=== PATIENT | female | born 1930 | race Caucasian/White ===

== ENCOUNTER → 2017-05-11 | Outpatient (CLI) | payer OTHER ==
[~2017-05-11] MED LIST: AMLO-110 PO; ASPEC81 PO; ATEN-175 PO; ATOR-24 PO; LEVO150T9 PO; LISI40TA PO; MODA100T17 PO; MULT-190 PO; MULT-506 PO; OMEG10007 PO
--- NOTE | 2017-05-11 15:42 | MAMMOGRAPHY REPORT ---
BILATERAL DIGITAL SCREENING MAMMOGRAM WITH CAD: 05/11/2017 CLINICAL HISTORY: Asymptomatic. Personal history of breast cancer. TECHNIQUE: Bilateral CC and MLO views were obtained. Current study was also evaluated with a Compute r Aided Detection (CAD) system. COMPARISON: Comparison is made to exams dated: 04/15/2016 mammogram, 04/12/2015 mammogram, 04/07/2014 [facility] mogram, 04/06/2013 mammogram, 04/05/2012 mammogram, and 03/17/2011 mammogram - [facility]. BREAST COMPOSITION: There are scattered areas of fibroglandular density in both breasts. FINDINGS: There is expected architectural distortion and associated surgical clips in the upper outer quadrant of the right breast, at the site of prior lumpectomy. There are stable benign-appearing gr ouped calcifications and a stable metallic biopsy marker also near the surgical site. There is a sta ble circumscribed 16 mm mass in the upper outer middle one third of the right breast. Stable asymmet ry and associated calcification in the left upper outer quadrant. No new suspicious mass, architectu ral distortion or cluster of microcalcifications is seen. IMPRESSION: ACR BI-RADS CATEGORY 1: NEGATIVE There is no mammographic evidence of malignancy. A 1 year screening mammogram is recommended. The pa tient will receive written notification of the results. Approximately 10% of breast cancers are not detected with mammography. A negative mammographic report should not delay biopsy if a clinically suggestive mass is present. Chiqui Rashid M.D. ay/:05/11/2017 15:14:23 Chief Analytics Officer: Zuleika Arredondo RT(R)(M), [facility] letter sent: Normal 1/2 BI-RADS Code: ACR BI-RADS Category 1: Negative
== END | disposition home or self-care (01) ==
LOC: C.MAMM 14:24
PROVIDERS: ATTEND Family Medicine
DX: Z12.31 Encounter for screening mammogram for malignant neoplasm of breast (principal)

== ENCOUNTER 2017-11-23 11:03 | Emergency (ER) | payer OTHER ==
[~2017-11-23] VITALS: Ht 172.7 cm; Wt 93.0 kg
[2017-11-23 10:57] VITALS: TEMP 36.5; Ht 172.7 cm; Wt 93.0 kg
[2017-11-23] MEDS ORDERED: MULT-190 PO (12:06)
--- NOTE | 2017-11-23 12:47 | EMERGENCY ROOM VISIT NOTE ---
History Report prepared by Niurka: Hever Mendez Under the Supervision of: Dr. Quintin Garcia M.D. First contact with patient: 12:16 Chief Complaint: FALL Stated Complaint: FALL History of Present Illness The patient is an 87 year old white female with a past medical history of Factor 5 and a previous DVT who presents to the ED with a cc of a headache beginning 2.5 hours ago. Positive fall, head trauma, and mild amnesia. Negative loss of consciousness, neck pain, chest pain, shortness of breath, shoulder pain , abdominal pain, back pain, or any other abnormal symptoms. A couple of hours ago, the patient was walking into [place] when she accidentally slipped on the ice and fell backwards, hitting the back of her head. She denies any loss of consciousness, but had some mild amnesia after the event, not remembering a small amount of time. She takes a baby Aspirin daily without any other blood thinners. She didn't take anything for her pain. Source of History: patient Onset: 2.5 hours ago Position: head Symptom Intensity: moderate Quality: ache Timing: constant Associated Symptoms: No LOC, No neck pain, No chest pain, No SOB, No abdominal pain, No back pain, No weakness Note: The patient experienced a fall with head trauma and mild amnesia. Review of Systems See HPI for pertinent positives and negatives. A total of ten systems were reviewed and were otherwise negative. Past Medical & Surgical Medical Problems: (1) Hx of blood clots (2) Hypertension Family History Cancer Diabetes mellitus Gallbladder disease Hypertension Social History Smoking Status: Former Smoker Alcohol Use: none Drug Use: none Occupation Status: retired Current/Historical Medications Scheduled Amlodipine (Norvasc), 5 MG PO DAILY Aspirin Enteric Coated (Ecotrin Or Generic *), 81 MG PO DAILY Atorvastatin (Lipitor), 40 MG PO DAILY Fish Oil (Crawford-3), 2 CAPSULES PO DAILY Levothyroxine Sodium (Levothyroxine Sodium), 150 MG PO DAILY Lisinopril (Zestril), 20 MG PO DAILY Modafinil (Provigil), 100 MG PO DAILY Multivitamin (Multivitamin), 1 TAB PO DAILY Ocuvite Preservision (Ocuvite Preservision), 1 TAB PO BID Ocuvite Preservision (Ocuvite Preservision), 1 TAB PO BID Allergies Coded Allergies: Sulfa Antibiotics (Verified Allergy, Mild, HIVES, 11/23/17) Physical Exam Vital Signs Date Time Temp Pulse Resp B/P (MAP) Pulse Ox O2 Delivery O2 Flow Rate FiO2 11/23/17 13:52 70 18 157/75 98 Room Air 11/23/17 12:58 67 18 167/89 97 Room Air 11/23/17 12:38 70 11/23/17 10:57 36.5 76 18 175/83 98 Room Air Physical Exam GENERAL: Awake, alert, well-appearing, NAD HENT: Normocephalic. Small hematoma to the right lateral occiput. EYES: Normal conjunctiva. Sclera non-icteric. NECK: Supple. No nuchal rigidity. FROM. No midline c-spine tenderness. RESPIRATORY: CTAB, no rhonchi, wheezing, crackles CARDIAC: RRR, no MRG ABDOMEN: Soft, NTND, BS+ MSK: No chest wall TTP, no LE edema NEURO: GCS 15, CN 2-12 intact, moves all 4s on command SKIN: No rash or jaundice noted. Medical Decision & Procedures ER Provider Diagnostic Interpretation: Radiology results as stated below per my review and radiologist interpretation: CT OF THE HEAD WITHOUT CONTRAST CLINICAL HISTORY: Fall. COMPARISON STUDY: No previous studies for comparison. CT DOSE: 1150.11 mGy.cm TECHNIQUE: Helical axial images of the head were obtained without IV contrast. Automated exposure control was utilized for the study. A dose lowering technique was utilized adhering to the principles of ALARA. FINDINGS: No acute intracranial hemorrhage, midline shift or mass effect is present. Brain volume is normal for age. Ventricular system is unremarkable. The basilar cisterns are patent. There are no extra-axial collections. Hypodensity within the left occipital lobe is noted. Right matter hypodensity suggests small vessel disease. Hypodensity within the left centrum semiovale likely reflect small vessel disease or an old infarct. There is no calvarial fracture. There is a small right posterior scalp contusion. IMPRESSION: 1. No acute intracranial hemorrhage or mass effect. 2. Small right posterior scalp contusion. No calvarial fracture. 3. Left occipital lobe hypodensity. 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 Electronically signed by: Nathaniel Rodriguez M.D. 11/23/2017 1:33 PM Dictated Date/Time: 11/23/2017 1:30 PM CERVICAL SPINE W/O CLINICAL HISTORY: 87 years-old Female presenting with EVALUATE FOR TRAUMA/INJURY, fall on ice this morning, posterior head injury. TECHNIQUE: Multidetector CT of the cervical spine was performed without the use of intravenous contrast. IV contrast: None. A dose lowering technique was used consistent with the principles of ALARA (as low as reasonably achievable). COMPARISON: None. CT DOSE (mGy.cm): The estimated cumulative dose is 1150.11. FINDINGS: Laster Hand topogram: Unremarkable. Straightening of normal cervical lordosis likely positional and secondary to degenerative change. Trace anterolisthesis of C4 on C5. Vertebral bodies demonstrate mild height loss at C5 and C6, likely degenerative in etiology. Intervertebral disc height loss also most severe at C5-6 and to a lesser extent at C6-7 and C7-T1. Disc osteophyte complexes noted from C5-6 through C7-T1. Facet arthropathy also noted. Only minimal posterior bony spurring noted. Uncovertebral hypertrophy results in osseous neural foraminal narrowing on the right at C5-6 and to a lesser extent on the left at C6-7 and C7-T1. No acute fracture or subluxation. Skull base intact. Paraspinal soft tissues within normal limits. Atherosclerosis of aortic arch. Lung apices clear. IMPRESSION: 1. No acute osseous injury of the cervical spine. 2. 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 Electronically signed by: Humberto Kelly M.D. 11/23/2017 1:34 PM Dictated Date/Time: 11/23/2017 1:30 PM Medications Administered Medications (Trade) Dose Ordered Sig/Taina Route Start Time Stop Time Status Last Admin Dose Admin Acetaminophen (Tylenol Tab) 650 mg STK-MED ONCE .ROUTE 11/23/17 12:55 11/23/17 12:56 DC 11/23/17 12:55 650 MG ED Course 1216: The patient was evaluated in room C7. A complete history and physical exam was performed. 1357: I reevaluated the patient. Discussed results and discharge instructions: She verbalized understanding and agreement. The patient is ready for discharge. Medical Decision The patient is an 87 year old white female with a past medical history of Factor 5 and a previous DVT who presents to the ED with a cc of a headache beginning 2.5 hours ago. Positive fall, head trauma, and mild amnesia. Negative loss of consciousness, neck pain, chest pain, shortness of breath, shoulder pain , abdominal pain, back pain, or any other abnormal symptoms. Differential diagnosis: Etiologies such as fracture, dislocation, intra-abdominal, pneumothorax, intrathoracic , intracranial, neurologic, as well as other traumatic pathologies were entertained. Patient was seen and evaluated the bedside. Patient was involved in a prior mechanical fall earlier today. Patient slipped on ice. Patient denies any LOC or seizure like activity. Patient denies any focal neurologic deficits and has a nonfocal neurologic exam. Patient did have a CT of the head and CT C-spine completed. These findings were negative acute. Upon assessment patient was able to ambulate and tolerate by mouth without difficulty. Patient was given return precautions and follow up instructions. Patient was given strict follow- up, discharge, and return precautions. All questions were answered. Patient was deemed suitable for outpatient follow-up at this time. Patient agreed with the plan of care and was safely discharged home. Medication Reconcilliation Current Medication List: was personally reviewed by me Blood Pressure Screening Patient's blood pressure: Elevated blood pressure Blood pressure disposition: Referred to PCP Impression Primary Impression: Fall Additional Impression: Contusion of head Scribe Attestation The scribe's documentation has been prepared under my direction and personally reviewed by me in its entirety. I confirm that the note above accurately reflects all work, treatment, procedures, and medical decision making performed by me. Departure Information Dispostion Home / Self-Care Referrals Hilda Funez DO (PCP) Forms HOME CARE DOCUMENTATION FORM, IMPORTANT VISIT INFORMATION Patient Instructions ED Mechanical Fall, ED Prevention Fall, [facility] Additional Instructions Please return to the emergency department if you have worsening or recurrent symptoms not amenable to at-home treatment. Please call for a follow-up appointment with her primary care physician. Please take your medications as prescribed. If you have other concerns and/or complaints please feel free to also call your primary care physician's office or return the ED for further evaluation, management, and treatment. You may take tylenol 650 mg every 6 hours as needed for pain. Apply ice and a compression bandage to the swelling on your head. Return if you have worsening symptoms. Take your medications as prescribed. You have been examined and treated today on an emergency basis only. This is not a substitute for, or an effort to provide, complete comprehensive medical care. It is impossible to recognize and treat all injuries or illnesses in a single emergency department visit. It is therefore important that you follow up closely with [facility], your PCP, and/or your specialist(s). Call as soon as possible for an appointment. Thank you for your time and consideration. I look forward to speaking with you again soon. Please don't hesitate to call us if you have any questions. Problem Qualifiers Primary Impression: Fall Encounter type: initial encounter Qualified Codes: W19.XXXA - Unspecified fall, initial encounter Additional Impression: Contusion of head Encounter type: initial encounter Contusion of head detail: scalp Qualified Codes: S00.03XA - Contusion of scalp, initial encounter
[2017-11-23] MEDS ORDERED: ACETAMINOPHEN 325 MG TAB ONE (12:55)
--- NOTE | 2017-11-23 13:34 | DIAGNOSTIC IMAGING REPORT ---
CT OF THE HEAD WITHOUT CONTRAST CLINICAL HISTORY: Fall. COMPARISON STUDY: No previous studies for comparison. CT DOSE: 1150.11 mGy.cm TECHNIQUE: Helical axial images of the head were obtained without IV contrast. Automated exposure control was utilized for the study. A dose lowering technique was utilized adhering to the principles of ALARA. FINDINGS: No acute intracranial hemorrhage, midline shift or mass effect is present. Brain volume is normal for age. Ventricular system is unremarkable. The basilar cisterns are patent. There are no extra-axial collections. Hypodensity within the left occipital lobe is noted. Right matter hypodensity suggests small vessel disease. Hypodensity within the left centrum semiovale likely reflect small vessel disease or an old infarct. There is no calvarial fracture. There is a small right posterior scalp contusion. IMPRESSION: 1. No acute intracranial hemorrhage or mass effect. 2. Small right posterior scalp contusion. No calvarial fracture. 3. Left occipital lobe hypodensity. 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 Electronically signed by: Nathaniel Rodriguez M.D. 11/23/2017 1:33 PM Dictated Date/Time: 11/23/2017 1:30 PM
--- NOTE | 2017-11-23 13:35 | DIAGNOSTIC IMAGING REPORT ---
CERVICAL SPINE W/O CLINICAL HISTORY: 87 years-old Female presenting with EVALUATE FOR TRAUMA/INJURY, fall on ice this morning, posterior head injury. TECHNIQUE: Multidetector CT of the cervical spine was performed without the use of intravenous contrast. IV contrast: None. A dose lowering technique was used consistent with the principles of ALARA (as low as reasonably achievable). COMPARISON: None. CT DOSE (mGy.cm): The estimated cumulative dose is 1150.11. FINDINGS: Production Sanitizer topogram: Unremarkable. Straightening of normal cervical lordosis likely positional and secondary to degenerative change. Trace anterolisthesis of C4 on C5. Vertebral bodies demonstrate mild height loss at C5 and C6, likely degenerative in etiology. Intervertebral disc height loss also most severe at C5-6 and to a lesser extent at C6-7 and C7-T1. Disc osteophyte complexes noted from C5-6 through C7-T1. Facet arthropathy also noted. Only minimal posterior bony spurring noted. Uncovertebral hypertrophy results in osseous neural foraminal narrowing on the right at C5-6 and to a lesser extent on the left at C6-7 and C7-T1. No acute fracture or subluxation. Skull base intact. Paraspinal soft tissues within normal limits. Atherosclerosis of aortic arch. Lung apices clear. IMPRESSION: 1. No acute osseous injury of the cervical spine. 2. 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 Electronically signed by: Humberto Kelly M.D. 11/23/2017 1:34 PM Dictated Date/Time: 11/23/2017 1:30 PM
[2017-11-23 13:52] VITALS: BP 157/75; PULSE 70; O2SAT 98
== END 2017-11-23 14:01 | disposition home or self-care (01) ==
LOC: EDBD 11:03 → C.EDC 11:04
DX: S00.93XA Contusion of unspecified part of head, initial encounter (principal); W00.0XXA Fall on same level due to ice and snow, initial encounter; Y92.512 Supermarket, store or market as the place of occurrence of the external cause; Z86.718 Personal history of other venous thrombosis and embolism; I10 Essential (primary) hypertension; Z79.82 Long term (current) use of aspirin; Z79.899 Other long term (current) drug therapy; Z88.2 Allergy status to sulfonamides; Z87.891 Personal history of nicotine dependence; Z80.9 Family history of malignant neoplasm, unspecified; Z83.79 Family history of other diseases of the digestive system; Z83.3 Family history of diabetes mellitus; Z82.49 Family history of ischemic heart disease and other diseases of the circulatory system

== ENCOUNTER → 2018-05-12 | Outpatient (CLI) | payer OTHER ==
[~2018-05-12] MED LIST changes: -AMLO-110 PO; +AMLO5TAB3 PO; -ATEN-175 PO
--- NOTE | 2018-05-13 14:56 | MAMMOGRAPHY REPORT ---
BILATERAL DIGITAL SCREENING MAMMOGRAM TOMOSYNTHESIS WITH CAD: 05/12/2018 CLINICAL HISTORY: Asymptomatic. Personal history of breast cancer. TECHNIQUE: The study was acquired using full field digital technology and interpreted from soft copy. Breast tomosynthesis in addition to standard 2D mammography was performed. Current study was also ev aluated with a Computer Aided Detection (CAD) system. COMPARISON: Comparison is made to exams dated: 05/11/2017 mammogram, 04/15/2016 mammogram, 04/12/2015 [facility] mogram, 04/07/2014 mammogram, 04/06/2013 mammogram, and 04/05/2012 mammogram - [facility]. BREAST COMPOSITION: There are scattered areas of fibroglandular density in both breasts. FINDINGS: A linear scar marker overlies the right upper outer quadrant. There is expected architectu ral distortion, benign-appearing calcification and surgical clips in the upper outer right breast, at the site of prior lumpectomy. There is a stable circumscribed benign 17 mm mass in the approximate 9:00 right breast. Scattered benign rim calcifications and mild vascular calcifications bilaterally. No new suspicious mass, architectural distortion or cluster of microcalcifications is seen. IMPRESSION: ACR BI-RADS CATEGORY 1: NEGATIVE There is no mammographic evidence of malignancy. A 1 year screening mammogram is recommended.( 019) The patient will receive written notification of the results. Some breast cancers are not detected with mammography. A negative mammographic report should not jeffrey y biopsy if a clinically suggestive mass is present. Chiqui Rashid M.D. ay/:05/12/2018 16:16:36 Driver License Technician: Tania Ann, [facility] letter sent: Normal 1/2 BI-RADS Code: ACR BI-RADS Category 1: Negative
== END | disposition home or self-care (01) ==
LOC: C.MAMM 14:08
PROVIDERS: ATTEND Family Medicine
DX: Z12.31 Encounter for screening mammogram for malignant neoplasm of breast (principal)

== ENCOUNTER 2022-08-16 14:30 | Inpatient (IN) ==
--- NOTE | 2022-08-16 14:54 | Emergency Department Note ---
Impression & Plan Slurred speech, Facial droop, Acute UTI ED Provider Note Provider: José Miguel Arguello MD DATE OF SERVICE: 08/16/2022 CHIEF COMPLAINT: Slurred speech/weakness HISTORY OF PRESENT ILLNESS: Patient is a 89-year-old female history of hypertension narcolepsy presenting with daughter today reporting that around 3 PM yesterday, patient began to have some slurred speech. Persistent continuously through till today. She also states today she seems not as easily recognizing people and more weak than normal generally. No trauma or falls reported. No recent cough or fevers or urinary symptoms reported. Patient denies any pain. Patient denies numbness or tingling in the extremities. Daughters have noted some left facial droop again with slurred speech which is new. No recent rash or tick bites reported. REVIEW OF SYSTEMS: A total of 10 review of systems was obtained and negative except as stated above in the HPI. PAST MEDICAL HISTORY: As noted above MEDICATIONS: Reviewed home medications SOCIAL HISTORY: Lives by herself, ambulates with rolling walker PHYSICAL EXAM: GENERAL: alert and oriented in no acute distress on stretcher Head: normocephalic and atraumatic EYES: No injection, discharge or icterus. PERRL, EOMI. NECK: Trachea midline. Supple. ENT: Mucous membranes pink and moist. LUNGS: Airway patent. No retractions. Breath sounds clear HEART: Regular rate and rhythm. No chest wall tenderness ABDOMEN: Soft and non-tender, without guarding or rebound. SKIN: Acyanotic, warm, dry, without rashes EXTREMITIES: Without swelling, tenderness or deformity NEUROLOGICAL: No aphasia. Normal strength and tone in the extremities. Sensation to gross touch normal. Tongue midline some slurred speech is appreciated but no clear aphasia. And with some mild left sided facial droop at rest. EK bpm normal sinus rhythm. No PVC or PAC. No acute ST segment elevation or depression with a QTC of 456. CONTINUOUS CARDIAC MONITORING: was ordered and showed a heart rate of 60s-70s bpm in NSR Patient's laboratory studies and imaging reviewed. Differential includes Infection, dehydration, metabolic abnormality, hypo/hyperglycemia, electrolyte disturbance, anemia, hypoxia, cardiac sources, intracerebral event, toxicologic, neurologic, as well as other pathologies. IMPRESSION/MEDICAL DECISION MAKING: Patient about 24 hours out from initial symptoms and thus not a thrombolytic candidate. Slurred speech appreciated with some mild foot appears to be right sided facial droop. Intact strength grossly in the arms and legs without drift. No trauma history or headache reported. CT is a CT angiograms if renal function allows to be completed evaluate for possible CVA. Basic labs to be obtained. Symptoms seem more pronounced and not expect from just Melissa's palsy and her age would be atypical for as well. Blood work without significant anemia or leukocytosis. No severe electrolyte abnormalities. Some chronic CKD creatinine of 1.6 today given this we will hold off on angiograms. CT of the head completed. Radiology report reviewed without significant findings. COVID-negative. Discussed radiology report findings and concern for possible occult CVA with patient and family members. Given continued symptoms did recommend further evaluation with MRI to exclude occult stroke. Urinalysis is concerning for infection this could possibly explain symptoms but generally that is more globalized as opposed to the slurred speech and facial droop noted here on exam. Patient in agreement. Given a dose of ceftriaxone given the urine pending culture. DIAGNOSIS: Slurred speech, left facial droop, acute UTI DISPOSITION: Hospitalist will evaluate Patient was agreeable with this plan. Past Med/Surg History Medical History 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, s/p lumpectomy CKD (chronic kidney disease), stage IV Diverticular disease Factor V Leiden Hiatal hernia History of DVT (deep vein thrombosis) 2006-completed 3 months of Coumadin therapy Hypertension Hypothyroidism Macular degeneration BILATERAL Narcolepsy Osteoarthritis Surgical History History of cholecystectomy History of colonoscopy Family History Sister Diabetes Brother Deep vein thrombosis Social History Smoking Status: Never smoker Tobacco Type: Cigarettes Second Hand Exposure: No; Hx Alcohol Use: No Hx Substance Use: No Preferred Language: Serbian Communication Ability: Effective Gas Compressor Operator Required: No Beliefs That Will Affect Care: None Current Living Situation: Alone Feels Safe at Home: Yes Safety Concerns: Feels Safe At This Time Assistive Devices: Denture - Upper, Denture - Lower, Glasses and Walker Allergies Allergies Allergy/AdvReac Type Severity Reaction Status Date / Time Sulfa (Sulfonamide Allergy Mild Hives Verified 08/16/22 16:29 Antibiotics) Home Meds Home Medications Medication Instructions Recorded Confirmed amlodipine 10 mg tablet 10 mg PO HS 04/26/19 08/16/22 atorvastatin 40 mg tablet 40 mg PO HS 04/26/19 08/16/22 lisinopril 20 mg tablet 40 mg PO QAM 04/26/19 08/16/22 metoprolol succinate 25 mg 25 mg PO HS 04/26/19 08/16/22 tablet,extended release 24 hr omega-3 fatty acids-fish oil 360 2 cap PO QAM 04/26/19 08/16/22 mg-1,200 mg capsule (Fish Oil) vit C 226 mg-vit E 90 mg-copper 1 cap PO BID 04/26/19 08/16/22 0.8 mg-zinc oxide-lutein 5 mg capsule (PreserVision Lutein) cholecalciferol (vitamin D3) 25 25 mcg PO DAILY 08/16/22 08/16/22 mcg (1,000 unit) capsule (Vitamin D3) hydrochlorothiazide 12.5 mg tablet 12.5 mg PO QAM 08/16/22 08/16/22 levothyroxine 137 mcg tablet 137 mcg PO DAILYBB 08/16/22 08/16/22 modafinil 200 mg tablet 100 mg PO QAM 08/16/22 08/16/22 multivitamin 1 tab PO QAM 08/16/22 08/16/22 Results & Data (ED) Vital Signs Vital Signs - 24 hr 08/16/22 14:34 08/16/22 15:41 08/16/22 16:00 Temperature 36.6 C Temperature Source Temporal Artery Scan Pulse Rate 75 68 Pulse Rate from SpO2 Sensor 68 Respiratory Rate 16 16 Respiratory Effort / Characteristics Non-Labored Respiratory Depth Normal Blood Pressure 178/77 H 164/76 H Blood Pressure Mean 110 105 Pulse Oximetry 93 97 Oxygen Delivery Method Room Air Sepsis Recent Fever Within 48 Hours No Sepsis New/Unexplained Change in Mental Status No Sepsis Action Taken by Nursing No Action Required 08/16/22 16:00 08/16/22 16:30 08/16/22 16:30 Temperature Temperature Source Pulse Rate 67 67 Pulse Rate from SpO2 Sensor 67 67 Respiratory Rate 20 15 Respiratory Effort / Characteristics Respiratory Depth Blood Pressure 172/70 H Blood Pressure Mean 104 Pulse Oximetry 97 97 Oxygen Delivery Method Sepsis Recent Fever Within 48 Hours Sepsis New/Unexplained Change in Mental Status Sepsis Action Taken by Nursing 08/16/22 17:04 08/16/22 17:30 08/16/22 17:30 Temperature Temperature Source Pulse Rate Pulse Rate from SpO2 Sensor 71 73 Respiratory Rate Respiratory Effort / Characteristics Respiratory Depth Blood Pressure 182/79 H Blood Pressure Mean 113 Pulse Oximetry 97 99 Oxygen Delivery Method Sepsis Recent Fever Within 48 Hours Sepsis New/Unexplained Change in Mental Status Sepsis Action Taken by Nursing 08/16/22 18:00 08/16/22 18:00 08/16/22 18:30 Temperature Temperature Source Pulse Rate Pulse Rate from SpO2 Sensor 72 Respiratory Rate Respiratory Effort / Characteristics Respiratory Depth Blood Pressure 175/81 H 168/79 H Blood Pressure Mean 112 108 Pulse Oximetry 97 Oxygen Delivery Method Sepsis Recent Fever Within 48 Hours Sepsis New/Unexplained Change in Mental Status Sepsis Action Taken by Nursing 08/16/22 18:30 Temperature Temperature Source Pulse Rate 67 Pulse Rate from SpO2 Sensor 68 Respiratory Rate 23 Respiratory Effort / Characteristics Respiratory Depth Blood Pressure Blood Pressure Mean Pulse Oximetry 96 Oxygen Delivery Method Sepsis Recent Fever Within 48 Hours Sepsis New/Unexplained Change in Mental Status Sepsis Action Taken by Nursing Laboratory Data Result diagrams: 08/16/22 15:30 08/16/22 15:30 Lab Results 08/16/22 08/16/22 08/16/22 Range/Units 15:20 15:30 15:30 WBC 5.11 (4.8-10.8) K/ul RBC 4.03 (3.93-5.22) M/uL Hgb 12.3 (12.0-16.0) g/dl POC Hgb (12.0-16.0) g/dl Hct 37.0 (34.1-44.9) % POC Hct (37-47) % MCV 91.8 (80.0-100.0) fL MCH 30.5 (25.0-34.0) pg MCHC 33.2 (32.0-36.0) g/dL RDW Std Deviation 40.5 (36.4-46.3) fL RDW Coeff of Nicolasa 12.1 (11.5-14.5) % Plt Count 161 (130-400) K/uL MPV 10.9 (9.4-12.3) fL Immature Gran % (Auto) 0.2 % Neut % (Auto) 46.6 % Lymph % (Auto) 36.0 % Talbot % (Auto) 13.7 % Eos % (Auto) 3.1 % Baso % (Auto) 0.4 % Neut # (Auto) 2.38 (1.4-6.5) K/uL Lymph # (Auto) 1.84 (1.2-3.4) K/uL Talbot # (Auto) 0.70 (0.24-0.82) K/uL Eos # (Auto) 0.16 (0-0.50) K/uL Baso # (Auto) 0.02 (0-0.2) K/uL Immature Gran # (Auto) 0.01 (0.00-0.02) K/uL PT 11.4 (9.0-12.0) Seconds INR 1.1 (0.9-1.1) APTT 25.8 (21.0-31.0) Seconds PTT Ratio 0.9 POC Sodium (135-144) mmol/L Sodium (136-145) mmol/L POC Potassium (3.3-5.0) mmol/L Potassium (3.5-5.1) mmol/L POC Chloride (101-112) mmol/L Chloride (98-107) mmol/L Carbon Dioxide (21-32) mmol/L POC Total CO2 (24-31) mmol/L Anion Gap (3-11) POC Anion Gap (16-25) mmol/L POC BUN (7-18) mg/dl BUN (6-23) mg/dl Creatinine (0.6-1.2) mg/dl POC Creatinine (0.6-1.3) mg/dl Est Cr Clr Drug Dosing ml/min Est GFR ( Amer) ml/min Est GFR (Non-Af Amer) ml/min BUN/Creatinine Ratio (10-20) Glucose (70-99(Fasting)) mg/dl POC Glucose (other) (70-99) mg/dl Calcium (8.5-10.1) mg/dl POC Ioniz Calcium Andreina (1.12-1.32) mmol/l Magnesium (1.7-2.4) mg/dl Total Bilirubin (0.2-1.0) mg/dl AST (13-39) U/L ALT (7-52) U/L Alkaline Phosphatase (34-104) U/L Troponin I High Sens (0-14) pg/ml Total Protein (6.0-8.3) gm/dl Albumin (3.4-5.0) gm/dl Globulin (2.5-4.0) gm/dl Albumin/Globulin Ratio (0.9-2) TSH (0.300-4.500) uIu/ml Free T4 (0.61-1.60) ng/dl Urine Color Urine Appearance (Clear) Urine pH (4.5-7.5) Ur Specific Pound (1.000-1.030) Urine Protein (Negative) Urine Glucose (UA) (Negative) Urine Ketones (Negative) Urine Blood (Negative) Urine Nitrite (Negative) Urine Bilirubin (Negative) Urine Urobilinogen (Negative) Ur Leukocyte Esterase (Negative) Urine WBC (Auto) (0-5) /hpf Urine RBC (Auto) (0-4) /hpf U Hyaline Cast (Auto) (0-5) /lpf U Epithel Cells (Auto) (0-5) /lpf Urine Bacteria (Auto) (Negative) SARS-CoV-2, RNA, NAAT NEGATIVE (NEGATIVE) 08/16/22 08/16/22 08/16/22 Range/Units 15:30 15:30 15:44 WBC (4.8-10.8) K/ul RBC (3.93-5.22) M/uL Hgb (12.0-16.0) g/dl POC Hgb 11.9 L (12.0-16.0) g/dl Hct (34.1-44.9) % POC Hct 35 L (37-47) % MCV (80.0-100.0) fL MCH (25.0-34.0) pg MCHC (32.0-36.0) g/dL RDW Std Deviation (36.4-46.3) fL RDW Coeff of Nicolasa (11.5-14.5) % Plt Count (130-400) K/uL MPV (9.4-12.3) fL Immature Gran % (Auto) % Neut % (Auto) % Lymph % (Auto) % Talbot % (Auto) % Eos % (Auto) % Baso % (Auto) % Neut # (Auto) (1.4-6.5) K/uL Lymph # (Auto) (1.2-3.4) K/uL Talbot # (Auto) (0.24-0.82) K/uL Eos # (Auto) (0-0.50) K/uL Baso # (Auto) (0-0.2) K/uL Immature Gran # (Auto) (0.00-0.02) K/uL PT (9.0-12.0) Seconds INR (0.9-1.1) APTT (21.0-31.0) Seconds PTT Ratio POC Sodium 142 (135-144) mmol/L Sodium 140 (136-145) mmol/L POC Potassium 4.4 (3.3-5.0) mmol/L Potassium 4.3 (3.5-5.1) mmol/L POC Chloride 105 (101-112) mmol/L Chloride 106 (98-107) mmol/L Carbon Dioxide 29 (21-32) mmol/L POC Total CO2 28 (24-31) mmol/L Anion Gap 5 (3-11) POC Anion Gap 15.0 L (16-25) mmol/L POC BUN 39 H (7-18) mg/dl BUN 38 H (6-23) mg/dl Creatinine 1.62 H (0.6-1.2) mg/dl POC Creatinine 1.7 H (0.6-1.3) mg/dl Est Cr Clr Drug Dosing 27.0 ml/min Est GFR ( Amer) 32.3 ml/min Est GFR (Non-Af Amer) 27.9 ml/min BUN/Creatinine Ratio 23.5 H (10-20) Glucose 97 (70-99(Fasting)) mg/dl POC Glucose (other) 101 H (70-99) mg/dl Calcium 9.3 (8.5-10.1) mg/dl POC Ioniz Calcium Andreina 1.14 (1.12-1.32) mmol/l Magnesium 2.3 (1.7-2.4) mg/dl Total Bilirubin 0.5 (0.2-1.0) mg/dl AST 16 (13-39) U/L ALT 11 (7-52) U/L Alkaline Phosphatase 80 (34-104) U/L Troponin I High Sens 4.6 (0-14) pg/ml Total Protein 7.0 (6.0-8.3) gm/dl Albumin 3.9 (3.4-5.0) gm/dl Globulin 3.1 (2.5-4.0) gm/dl Albumin/Globulin Ratio 1.3 (0.9-2) TSH < 0.010 L (0.300-4.500) uIu/ml Free T4 1.66 H (0.61-1.60) ng/dl Urine Color Urine Appearance (Clear) Urine pH (4.5-7.5) Ur Specific Pound (1.000-1.030) Urine Protein (Negative) Urine Glucose (UA) (Negative) Urine Ketones (Negative) Urine Blood (Negative) Urine Nitrite (Negative) Urine Bilirubin (Negative) Urine Urobilinogen (Negative) Ur Leukocyte Esterase (Negative) Urine WBC (Auto) (0-5) /hpf Urine RBC (Auto) (0-4) /hpf U Hyaline Cast (Auto) (0-5) /lpf U Epithel Cells (Auto) (0-5) /lpf Urine Bacteria (Auto) (Negative) SARS-CoV-2, RNA, NAAT (NEGATIVE) 08/16/22 Range/Units 15:52 WBC (4.8-10.8) K/ul RBC (3.93-5.22) M/uL Hgb (12.0-16.0) g/dl POC Hgb (12.0-16.0) g/dl Hct (34.1-44.9) % POC Hct (37-47) % MCV (80.0-100.0) fL MCH (25.0-34.0) pg MCHC (32.0-36.0) g/dL RDW Std Deviation (36.4-46.3) fL RDW Coeff of Nicolasa (11.5-14.5) % Plt Count (130-400) K/uL MPV (9.4-12.3) fL Immature Gran % (Auto) % Neut % (Auto) % Lymph % (Auto) % Talbot % (Auto) % Eos % (Auto) % Baso % (Auto) % Neut # (Auto) (1.4-6.5) K/uL Lymph # (Auto) (1.2-3.4) K/uL Talbot # (Auto) (0.24-0.82) K/uL Eos # (Auto) (0-0.50) K/uL Baso # (Auto) (0-0.2) K/uL Immature Gran # (Auto) (0.00-0.02) K/uL PT (9.0-12.0) Seconds INR (0.9-1.1) APTT (21.0-31.0) Seconds PTT Ratio POC Sodium (135-144) mmol/L Sodium (136-145) mmol/L POC Potassium (3.3-5.0) mmol/L Potassium (3.5-5.1) mmol/L POC Chloride (101-112) mmol/L Chloride (98-107) mmol/L Carbon Dioxide (21-32) mmol/L POC Total CO2 (24-31) mmol/L Anion Gap (3-11) POC Anion Gap (16-25) mmol/L POC BUN (7-18) mg/dl BUN (6-23) mg/dl Creatinine (0.6-1.2) mg/dl POC Creatinine (0.6-1.3) mg/dl Est Cr Clr Drug Dosing ml/min Est GFR ( Amer) ml/min Est GFR (Non-Af Amer) ml/min BUN/Creatinine Ratio (10-20) Glucose (70-99(Fasting)) mg/dl POC Glucose (other) (70-99) mg/dl Calcium (8.5-10.1) mg/dl POC Ioniz Calcium Andreina (1.12-1.32) mmol/l Magnesium (1.7-2.4) mg/dl Total Bilirubin (0.2-1.0) mg/dl AST (13-39) U/L ALT (7-52) U/L Alkaline Phosphatase (34-104) U/L Troponin I High Sens (0-14) pg/ml Total Protein (6.0-8.3) gm/dl Albumin (3.4-5.0) gm/dl Globulin (2.5-4.0) gm/dl Albumin/Globulin Ratio (0.9-2) TSH (0.300-4.500) uIu/ml Free T4 (0.61-1.60) ng/dl Urine Color Yellow Urine Appearance Cloudy A (Clear) Urine pH 6.5 (4.5-7.5) Ur Specific Pound 1.018 (1.000-1.030) Urine Protein Negative (Negative) Urine Glucose (UA) Negative (Negative) Urine Ketones Negative (Negative) Urine Blood 2+ H (Negative) Urine Nitrite Positive A (Negative) Urine Bilirubin Negative (Negative) Urine Urobilinogen Negative (Negative) Ur Leukocyte Esterase 2+ H (Negative) Urine WBC (Auto) >30 H (0-5) /hpf Urine RBC (Auto) 10-30 H (0-4) /hpf U Hyaline Cast (Auto) 1-5 (0-5) /lpf U Epithel Cells (Auto) 10-20 H (0-5) /lpf Urine Bacteria (Auto) 4+ H (Negative) SARS-CoV-2, RNA, NAAT (NEGATIVE) Administered Medications Amlodipine Besylate (Amlodipine Besylate 5 Mg Tab) 10 mg PO HS ARTEMIO Stop: 09/15/22 20:59 Last Admin: 08/16/22 21:17 Dose: Not Given Documented By: DELIA Atorvastatin Calcium (Atorvastatin 40 Mg Tab) 40 mg PO HS ARTEMIO Stop: 09/15/22 20:59 Last Admin: 08/16/22 21:17 Dose: Not Given Documented By: DELIA Heparin Sodium (Porcine) (Heparin Sod 5,000 Unit/0.5 Ml Vial) 5,000 units SQ Q8 ARTEMIO Stop: 09/15/22 21:59 Last Admin: 08/16/22 21:09 Dose: 5,000 units Documented By: DELIA Metoprolol Succinate (Metoprolol Succ 25mg Ext Rel Tab) 25 mg PO HS ARTEMIO Stop: 09/15/22 20:59 Last Admin: 08/16/22 21:17 Dose: Not Given Documented By: DELIA Discontinued Medications Aspirin (Aspirin 81 Mg Ectab) 162 mg PO NOW STA Stop: 08/16/22 19:17 Last Admin: 08/16/22 21:18 Dose: Not Given Documented By: DELIA Aspirin (Aspirin 300 Mg Supp) 300 mg MN ONE ONE Stop: 08/16/22 20:35 Last Admin: 08/16/22 21:08 Dose: 300 mg Documented By: DELIA Clopidogrel Bisulfate (Clopidogrel Bisulfate 300 Mg Tab) 300 mg PO NOW STA Stop: 08/16/22 19:17 Last Admin: 08/16/22 21:18 Dose: Not Given Documented By: DELIA Ceftriaxone Sodium (Rocephin) 2,000 mg in 70 mls @ 140 mls/hr IV NOW STA Stop: 08/16/22 18:04 Last Infusion: 08/16/22 20:43 Dose: 0 mls/hr Documented By: Admin: 08/16/22 19:45 Dose: 140 mls/hr Documented By: MARIUM Imaging Data Radiologist's Impression: Chest X-Ray 08/16/22 14:49 XR chest 1V portable CLINICAL HISTORY: Stroke Like Symptoms TECHNIQUE: Single frontal radiograph of the chest was obtained. Comparison: Comparison is made to chest radiograph 11/01/2020 FINDINGS: No lines and tubes are seen. Cardiomegaly is noted. Reticular interstitial opacities are seen. Incidental note is made of calcified granuloma in the left lung base. No evidence of pleural effusion or pneumothorax. IMPRESSION: No acute chest disease. Cardiomegaly is noted. ACT 112: Negative or not required by law. Electronically signed by: Florentin Silva M.D. 08/16/2022 3:[address] 08/16/22 14:49 CT head/brain wo con CLINICAL HISTORY: Stroke Like Symptoms, slurred speech Technique: Contiguous axial CT images of the head were acquired from the base of the skull to the vertex without intravenous contrast administration. Images were viewed in brain, subdural and bone windows. Automated dose lowering techniques and/or adjustment according to patient size were utilized for this exam. Comparison: Comparison is made to CT head 11/01/2020 Findings: Areas of decreased attenuation are present in the periventricular and subcortical white matter bilaterally consistent with small vessel ischemic disease. Generalized cerebral atrophy with commensurate enlargement of the ventricles, sulci, and cisterns is also present. There is no acute intracranial hemorrhage or evidence of acute territorial infarction. No shift of the midline structures, mass effect, or extra-axial abnormalities are shown. Atherosclerotic calcifications are present in the intracranial segments of the internal carotid arteries. Encephalomalacia is in the left occipital lobe and left periventricular white matter. Imaged portions of the paranasal sinuses and mastoid air cells are clear. The orbits appear normal. There are no acute fractures of the calvaria or scalp swelling. Impression: No acute intracranial hemorrhage, no evidence of acute territorial infarction or other acute intracranial disease process. ACT 112: Negative or not required by law. Electronically signed by: Florentin Silva M.D. 08/16/2022 5:18 PM Discharge Plan Visit Data Chief Complaint: Stroke/CVA Symptoms Stated Complaint: SLURRED SPEECH, FACIAL DROOP ED Provider: José Miguel Arguello Discharge Problem: Slurred speech, Facial droop, Acute UTI Patient Disposition: Admitted As Inpatient Discharge Instructions Interventions: ED Discharge Assessment Last Done: 08/16/22 20:43
--- NOTE | 2022-08-16 15:50 | XRay Report ---
XR chest 1V portable CLINICAL HISTORY: Stroke Like Symptoms TECHNIQUE: Single frontal radiograph of the chest was obtained. Comparison: Comparison is made to chest radiograph 11/01/2020 FINDINGS: No lines and tubes are seen. Cardiomegaly is noted. Reticular interstitial opacities are seen. Incide ntal note is made of calcified granuloma in the left lung base. No evidence of pleural effusion or pn eumothorax. IMPRESSION: No acute chest disease. Cardiomegaly is noted. ACT 112: Negative or not required by law. Electronically signed by: Florentin Silva M.D. 08/16/2022 3:48 PM
[2022-08-16 15:56] LABS: Basophils # (auto) 0.02 K/uL (0-0.2); Basophils % (auto) 0.4 %; Eosinophils # (auto) 0.16 K/uL (0-0.50); Eosinophils % (auto) 3.1 %; Hemoglobin 12.3 g/dl (12.0-16.0); Immature Granulocytes # (auto) 0.01 K/uL (0.00-0.02); Immature Granulocytes % (auto) 0.2 %; Lymphocytes # (auto) 1.84 K/uL (1.2-3.4); Mean Corpuscular Hemoglobin 30.5 pg (25.0-34.0); Mean Corpuscular Hgb Conc 33.2 g/dL (32.0-36.0); Mean Corpuscular Volume 91.8 fL (80.0-100.0); Mean Platelet Volume 10.9 fL (9.4-12.3); Monocytes % (auto) 13.7 %; Neutrophils # (auto) 2.38 K/uL (1.4-6.5); Neutrophils % (auto) 46.6 %; Platelet Count 161 K/uL (130-400); RDW Coefficient of Variation 12.1 % (11.5-14.5); RDW Standard Deviation 40.5 fL (36.4-46.3); Red Blood Count 4.03 M/uL (3.93-5.22); White Blood Count 5.11 K/ul (4.8-10.8)
[2022-08-16 15:56] LABS: iSTAT Creatinine 1.7 mg/dl (0.6-1.3); iSTAT Hemoglobin 11.9 g/dl (12.0-16.0); iSTAT Ionized Calcium 1.14 mmol/l (1.12-1.32); iSTAT Potassium 4.4 mmol/L (3.3-5.0)
[2022-08-16 16:17] LABS: INR 1.1 (0.9-1.1); Partial Thromboplastin Ratio 0.9; Partial Thromboplastin Time 25.8 Seconds (21.0-31.0); Prothrombin Time 11.4 Seconds (9.0-12.0)
[2022-08-16 16:19] LABS: Albumin Globulin Ratio 1.3 (0.9-2); Albumin Level 3.9 gm/dl (3.4-5.0); BUN Creatinine Ratio 23.5 (10-20); Bilirubin,Total 0.5 mg/dl (0.2-1.0); Calcium 9.3 mg/dl (8.5-10.1); Est GFR (African American) 32.3 ml/min; Est GFR (Non-African American) 27.9 ml/min; Globulin 3.1 gm/dl (2.5-4.0); Magnesium 2.3 mg/dl (1.7-2.4); Potassium 4.3 mmol/L (3.5-5.1)
[2022-08-16 16:22] LABS: Troponin I High Sensitivity 4.6 pg/ml (0-14)
[2022-08-16 17:14] LABS: Appearance Urine Cloudy (Clear); Bacteria Urine Automated 4+ (Negative); Bilirubin Urine Negative (Negative); Blood Urine 2+ (Negative); Color Urine Yellow; Glucose Urine UA Negative (Negative); Ketones Urine Negative (Negative); Leukocyte Esterase Urine 2+ (Negative); Nitrite Urine Positive (Negative); Protein Urine Negative (Negative); Specific Gravity Urine 1.018 (1.000-1.030); Urobilinogen Urine Negative (Negative); WBC Urine Automated >30 /hpf (0-5); pH Urine 6.5 (4.5-7.5)
--- NOTE | 2022-08-16 17:20 | CT Scan Report ---
CT head/brain wo con CLINICAL HISTORY: Stroke Like Symptoms, slurred speech Technique: Contiguous axial CT images of the head were acquired from the base of the skull to the markel taj without intravenous contrast administration. Images were viewed in brain, subdural and bone [facility]. Automated dose lowering techniques and/or adjustment according to patient size were utilized for this exam. Comparison: Comparison is made to CT head 11/01/2020 Findings: Areas of decreased attenuation are present in the periventricular and subcortical white matter bilate rally consistent with small vessel ischemic disease. Generalized cerebral atrophy with commensurate e nlargement of the ventricles, sulci, and cisterns is also present. There is no acute intracranial hem orrhage or evidence of acute territorial infarction. No shift of the midline structures, mass effect, or extra-axial abnormalities are shown. Atherosclerotic calcifications are present in the intracran ial segments of the internal carotid arteries. Encephalomalacia is in the left occipital lobe and lef t periventricular white matter. Imaged portions of the paranasal sinuses and mastoid air cells are clear. The orbits appear normal. There are no acute fractures of the calvaria or scalp swelling. Impression: No acute intracranial hemorrhage, no evidence of acute territorial infarction or other acute intracra nial disease process. ACT 112: Negative or not required by law. Electronically signed by: Florentin Silva M.D. 08/16/2022 5:18 PM
[2022-08-16] MEDS ORDERED: cefTRIAXone SODIUM 2,000 MG/70 ML BAG IV STA (17:35)
[2022-08-16] MEDS ORDERED: CLOPIDOGREL BISULFATE 300 MG TAB PO STA (19:16)
[2022-08-16] MEDS ORDERED: ASPIRIN 81 MG ECTAB PO STA (19:16)
[2022-08-16 19:24] LABS: Thyroid Stimulating Hormone < 0.010 uIu/ml (0.300-4.500)
[2022-08-16 19:55] LABS: T4 Free Thyroxine 1.66 ng/dl (0.61-1.60)
[2022-08-16] MEDS ORDERED: ACETAMINOPHEN 325 MG TAB PO PRN (20:27)
[2022-08-16] MEDS ORDERED: PHARMACIST DISCHARGE MED REC CONSULT PRN (20:27)
--- NOTE | 2022-08-16 20:30 | History & Physical Report ---
Date of Service August 16, 2022 Assessment & Plan (1) Facial droop: (2) Slurred speech: Plan: Admit to telemetry Patient presenting from home with reports of slurred speech and left mouth drooping In the ED, head CT negative for acute findings Due to facial droop, patient will not pass dysphagia screening until evaluated by speech therapy. Will provide aspirin rectally. Transition to ASA and Plavix and resume [employer] atorvastatin when able to take PO. Brain MRI Echo Neurochecks Neuro consult (3) Acute UTI: Plan: UA suggestive of UTI Likely asymptomatic bacteriuria Received IV ceftriaxone in the ED, continue with, follow urine culture (4) Hypothyroidism: Plan: TSH <0.010, free T4 1.66 Outpatient labs on 07/24 -TSH 0.01, free T4 3.1 --levothyroxine was reduced at that time Will reduce levothyroxine to 112 mcg daily Outpatient follow-up labs in 6 weeks (5) Hypertension: Plan: Continue amlodipine, lisinopril, HCTZ, metoprolol (6) CKD (chronic kidney disease), stage IV: Plan: Baseline creatinine mid 1s Creat 1.6 today Monitor renal functions (7) Narcolepsy: Plan: Continue modafinil (8) DVT prophylaxis: Plan: SQ heparin History of Present Illness Chief Complaint: Facial droop, slurred speech Primary Care Provider: Hilda Funez, 89-year-old female PMH hypothyroidism, HLD, history of DVT in 2006 treated with 3 months of Coumadin therapy, macular degeneration, CKD stage IV, factor V Leiden, narcolepsy with cataplexy, history of breast cancer s/p lumpectomy, and other problems listed below who presents the ED for evaluation of facial droop and slurred speech. Patient's daughter is the bedside who provides some history. States that yesterday afternoon she noted the patient to have some difficulty speaking and that the left side of her mouth was drooping. She states that her speech was somewhat slow and mildly slurred. This morning, when the patient's daughter spoke to her on the phone, the speech seems somewhat worse. Patient attended a with her family today. After the , patient presented to the ED for further evaluation due to persistent symptoms. No unilateral weakness, numbness, tingling reported. Patient reports he otherwise has been feeling well recently. Denies any other recent illnesses, fevers, chills. No abdominal pain, nausea, vomiting, diarrhea. Denies urinary symptoms. In the ED, head CT is negative for acute findings. UA is suggestive of UTI. Patient received IV ceftriaxone. Allergies Allergy/AdvReac Type Severity Reaction Status Date / Time Sulfa (Sulfonamide Allergy Mild Hives Verified 08/16/22 16:29 Antibiotics) Home Medications Medication Instructions Recorded Confirmed Type amlodipine 10 mg tablet 10 mg PO HS 04/26/19 08/16/22 History atorvastatin 40 mg tablet 40 mg PO HS 04/26/19 08/16/22 History lisinopril 20 mg tablet 40 mg PO QAM 04/26/19 08/16/22 History metoprolol succinate 25 mg 25 mg PO HS 04/26/19 08/16/22 History tablet,extended release 24 hr omega-3 fatty acids-fish oil 360 2 cap PO QAM 04/26/19 08/16/22 History mg-1,200 mg capsule (Fish Oil) vit C 226 mg-vit E 90 mg-copper 1 cap PO BID 04/26/19 08/16/22 History 0.8 mg-zinc oxide-lutein 5 mg capsule (PreserVision Lutein) cholecalciferol (vitamin D3) 25 25 mcg PO DAILY 08/16/22 08/16/22 History mcg (1,000 unit) capsule (Vitamin D3) hydrochlorothiazide 12.5 mg tablet 12.5 mg PO QAM 08/16/22 08/16/22 History levothyroxine 137 mcg tablet 137 mcg PO DAILYBB 08/16/22 08/16/22 History modafinil 200 mg tablet 100 mg PO QAM 08/16/22 08/16/22 History multivitamin 1 tab PO QAM 08/16/22 08/16/22 History Past Med/Surg History Medical History 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, s/p lumpectomy CKD (chronic kidney disease), stage IV Diverticular disease Factor V Leiden Hiatal hernia History of DVT (deep vein thrombosis) 2006-completed 3 months of Coumadin therapy Hypertension Hypothyroidism Macular degeneration BILATERAL Narcolepsy Osteoarthritis Surgical History History of cholecystectomy History of colonoscopy Family History Sister Diabetes Brother Deep vein thrombosis Social History Smoking Status: Never smoker Tobacco Type: Cigarettes Second Hand Exposure: No; Hx Alcohol Use: No Hx Substance Use: No Preferred Language: Serbian Communication Ability: Effective Hand Trimmer Required: No Beliefs That Will Affect Care: None Current Living Situation: Alone Feels Safe at Home: Yes Safety Concerns: Feels Safe At This Time Assistive Devices: Denture - Upper, Denture - Lower, Glasses and Walker Review of Systems Review of Systems: ROS per HPI, all other systems reviewed and negative Physical Exam Constitutional: WD/WN, vitals as above Eyes: PERRL, conjunctivae normal, anicteric sclerae ENMT: external ear and nose normal, oropharynx normal Respiratory: normal respiratory effort, lungs clear to auscultation Cardiovascular: Rate/Rhythm: regular rate and regular rhythm Vessels: normal peripheral pulses Extremities: no edema Gastrointestinal (Abdomen): normal bowel sounds, soft, nontender, no hepatosplenomegaly Musculoskeletal: no cyanosis or clubbing, extremities motor strength 5/5 Skin: no rashes, warm and dry Neurologic: moves all extremities; no focal motor deficits Speech / Cognition: + abnormal speech (speech somewhat slow and mildly thick/slurred) Cranial Nerves: PERRL, normal accommodation and EOM intact bilaterally; + abnormal facial strength (left side of mouth drooping) Coordination: normal oanooq-ei-davq test and normal knla-qw-oapl test Psychiatric: A+Ox3, euthymic affect Results & Data Results & Data ([facility]) Vital Signs (Past 12 Hours) Vital Signs Temp Pulse Resp BP Pulse Ox O2 Del Method 08/16/22 18:30 67 23 96 08/16/22 18:30 168/79 H 08/16/22 18:00 97 08/16/22 18:00 175/81 H 08/16/22 17:30 99 08/16/22 17:30 182/79 H 08/16/22 17:04 97 08/16/22 16:30 67 15 97 08/16/22 16:30 172/70 H 08/16/22 16:00 67 20 97 08/16/22 16:00 164/76 H 08/16/22 15:41 68 16 97 08/16/22 14:34 36.6 C 75 16 178/77 H 93 Room Air Laboratory Results Short CBC 08/16/22 Range/Units 15:30 WBC 5.11 (4.8-10.8) K/ul Hgb 12.3 (12.0-16.0) g/dl Hct 37.0 (34.1-44.9) % Plt Count 161 (130-400) K/uL BMP 08/16/22 15:30 Sodium 140 Potassium 4.3 Chloride 106 Carbon Dioxide 29 BUN 38 H Creatinine 1.62 H Glucose 97 Calcium 9.3 Liver Function 08/16/22 Range/Units 15:30 Total Bilirubin 0.5 (0.2-1.0) mg/dl AST 16 (13-39) U/L ALT 11 (7-52) U/L Alkaline Phosphatase 80 (34-104) U/L Albumin 3.9 (3.4-5.0) gm/dl Urine 08/16/22 Range/Units 15:52 Urine Color Yellow Urine Appearance Cloudy A (Clear) Urine pH 6.5 (4.5-7.5) Ur Specific Lapel 1.018 (1.000-1.030) Urine Protein Negative (Negative) Urine Glucose (UA) Negative (Negative) Diagnostic Findings Chest X-Ray 08/16/22 14:49 XR chest 1V portable CLINICAL HISTORY: Stroke Like Symptoms TECHNIQUE: Single frontal radiograph of the chest was obtained. Comparison: Comparison is made to chest radiograph 11/01/2020 FINDINGS: No lines and tubes are seen. Cardiomegaly is noted. Reticular interstitial opacities are seen. Incidental note is made of calcified granuloma in the left lung base. No evidence of pleural effusion or pneumothorax. IMPRESSION: No acute chest disease. Cardiomegaly is noted. ACT 112: Negative or not required by law. Electronically signed by: Florentin Silva M.D. 08/16/2022 3:[address] 08/16/22 14:49 CT head/brain wo con CLINICAL HISTORY: Stroke Like Symptoms, slurred speech Technique: Contiguous axial CT images of the head were acquired from the base of the skull to the vertex without intravenous contrast administration. Images were viewed in brain, subdural and bone windows. Automated dose lowering techniques and/or adjustment according to patient size were utilized for this exam. Comparison: Comparison is made to CT head 11/01/2020 Findings: Areas of decreased attenuation are present in the periventricular and subcortical white matter bilaterally consistent with small vessel ischemic disease. Generalized cerebral atrophy with commensurate enlargement of the ventricles, sulci, and cisterns is also present. There is no acute intracranial hemorrhage or evidence of acute territorial infarction. No shift of the midline structures, mass effect, or extra-axial abnormalities are shown. Atherosclerotic calcifications are present in the intracranial segments of the internal carotid arteries. Encephalomalacia is in the left occipital lobe and left periventricular white matter. Imaged portions of the paranasal sinuses and mastoid air cells are clear. The orbits appear normal. There are no acute fractures of the calvaria or scalp swelling. Impression: No acute intracranial hemorrhage, no evidence of acute territorial infarction or other acute intracranial disease process. ACT 112: Negative or not required by law. Electronically signed by: Florentin Silva M.D. 08/16/2022 5:18 PM Code Status & VTE Plan Code Status Patient is a full code as per my discussion with her. VTE Prophylaxis Plan VTE Prophylaxis will be ordered: Yes Supervising Physician Co-Signing Physician Notes 89-year-old female with acute onset facial droop and slurred speech that occurred yesterday. Also has a urinary tract infection present with frequent urination occurring today. She presents with her daughter who brought her in for evaluation. She feels as though everything is fine although persistently has left facial droop from the eyes down. She is able to lift her eyebrows and furl her forehead on the left side. She is able to close her eye completely on the left. She has no other focal deficits neurologically on exam. Exam is otherwise consistent with that above. She denies any fevers or chills. Agree with starting empiric ceftriaxone for urinary tract infection pending culture results and clinical improvement. With respect to her new onset neurologic facial droop and slurred speech, stroke is suspected. As she empirically fails the dysphagia screen with her facial droop she cannot take oral aspirin and Plavix. Aspirin was provided rectally. Notably she is on modafinil which interacts with Plavix per pharmacy. Please discuss with pharmacy if she is to go on dual antiplatelet therapy. Modafinil is given for narcolepsy and may need to be stopped temporarily. Brain MRI is pending as is echocardiogram and neurology assessment. Daughters were at the bedside and understand the plan. Permissive hypertension allowed. DO Stefan
[2022-08-16] MEDS ORDERED: ASPIRIN 300 MG SUPP PR ONE (20:34)
[2022-08-16] MEDS: HEPARIN SOD 5,000 UNIT/0.5 ML VIAL SQ SCH (21:09)
[2022-08-16] MEDS: amLODIPine BESYLATE 5 MG TAB PO SCH (21:17)
[2022-08-16] MEDS: ATORVASTATIN 40 MG TAB PO SCH (21:17)
[2022-08-16] MEDS: METOPROLOL SUCC 25MG EXT REL TAB PO SCH (21:17)
[2022-08-16] MEDS: METOPROLOL TARTRATE 1 MG/ML VIAL IV SCH (23:42)
[2022-08-17 06:38] LABS: Basophils # (auto) 0.03 K/uL (0-0.2); Basophils % (auto) 0.8 %; Eosinophils # (auto) 0.16 K/uL (0-0.50); Eosinophils % (auto) 4.5 %; Hematocrit (blood only) 35.3 % (34.1-44.9); Hemoglobin 11.5 g/dl (12.0-16.0); Immature Granulocytes # (auto) 0.01 K/uL (0.00-0.02); Immature Granulocytes % (auto) 0.3 %; Lymphocytes % (auto) 39.3 %; Mean Corpuscular Hemoglobin 30.3 pg (25.0-34.0); Mean Corpuscular Hgb Conc 32.6 g/dL (32.0-36.0); Mean Corpuscular Volume 93.1 fL (80.0-100.0); Mean Platelet Volume 10.6 fL (9.4-12.3); Monocytes # (auto) 0.37 K/uL (0.24-0.82); Monocytes % (auto) 10.4 %; Neutrophils # (auto) 1.59 K/uL (1.4-6.5); Neutrophils % (auto) 44.7 %; Platelet Count 134 K/uL (130-400); RDW Standard Deviation 41.1 fL (36.4-46.3); Red Blood Count 3.79 M/uL (3.93-5.22); White Blood Count 3.56 K/ul (4.8-10.8)
[2022-08-17] MEDS: HEPARIN SOD 5,000 UNIT/0.5 ML VIAL SQ SCH ×2 (06:41→20:54)
[2022-08-17] MEDS: METOPROLOL TARTRATE 1 MG/ML VIAL IV SCH (06:42)
[2022-08-17] MEDS: LEVOTHYROXINE SODIUM 125 MCG TABLET PO SCH (06:43)
[2022-08-17 07:22] LABS: BUN Creatinine Ratio 23.9 (10-20); Chol HDL Ratio 3.7 (0-5); Creatinine Clr Calc Pharmacy 28.4 ml/min; Est GFR (African American) 37.9 ml/min; Est GFR (Non-African American) 32.7 ml/min; Potassium 4.1 mmol/L (3.5-5.1)
--- NOTE | 2022-08-17 08:41 | Neurology Consultation ---
Date of Consultation August 17, 2022 Assessment & Plan (1) Stroke-like symptoms: Plan I agree that this patient probably had a stroke. She has mild dysarthria, right facial droop, and clumsiness of the right hand. She may have so-called "clumsy hand dysarthria lacunar stroke syndrome." Patient's signs and symptoms would localize to the left cerebral hemisphere, subcortical region, although a small brainstem stroke or multifocal embolic stroke cannot be completely excluded. S troke risk factors for this patient include hypertension and hyperlipidemia. Patient's hyperlipidemia appears to be well controlled with atorvastatin. Follow-up with results of brain MRI, transthoracic echocardiogram. Would also recommend a carotid ultrasound. CT angiography of the head and neck would be preferable although stage IV chronic kidney disease would likely preclude obtaining this test. Continue with atorvastatin 40 mg/day. Agree with initiation of aspirin 81 mg/day. Permissive hypertension for the time being, systolic blood pressure 140 to 160 mmHg. PT/OT/speech therapy. If MRI suggestive of multifocal embolic stroke, would need to consider additional outpatient cardiac monitoring, 14 or 30-day mobile cardiac outpatient telemetry. History of Present Illness Reason for Consultation: Stroke Requesting Physician: CANDELARIO Stover Attending Physician: Audra Aviles DO History of Present Illness The patient is an 89-year-old female who presented to the emergency department yesterday with a chief complaint of slurred speech and right-sided facial droop beginning 24 hours prior. Symptoms were noted by patient's daughter. Patient does not really have any specific neurologic complaint and seems to be unaware of her symptoms. She denies any headache, vertigo, change in vision, or significant difficulty with strength or motor function. She takes atorvastatin as an outpatient but does not appear to be on any type of blood thinner. Past medical history is notable for narcolepsy for which she is prescribed modafinil. History also notable for hyperlipidemia, hypertension, remote history of DVT, stage IV kidney disease, factor V Leiden gene mutation, history of breast cancer, status postlumpectomy. Blood pressure elevated the time of presentation, 178/77. I independently reviewed her initial CT of the head. No evidence of acute hemorrhage. There is an area of encephalomalacia within the left occipital lobe consistent with a chronic infarct. There is generalized atrophy. There is periventricular lucency with a notable focal area of lucency along the left lateral ventricle extending into the covington radiata consistent with either a subacute or chronic infarct. Electrocardiogram revealed a normal sinus rhythm, possible left atrial enlargement, 69 bpm. Allergies Allergy/AdvReac Type Severity Reaction Status Date / Time Sulfa (Sulfonamide Allergy Mild Hives Verified 08/16/22 16:29 Antibiotics) Home Medications Medication Instructions Recorded Confirmed Type amlodipine 10 mg tablet 10 mg PO HS 04/26/19 08/16/22 History atorvastatin 40 mg tablet 40 mg PO HS 04/26/19 08/16/22 History lisinopril 20 mg tablet 40 mg PO QAM 04/26/19 08/16/22 History metoprolol succinate 25 mg 25 mg PO HS 04/26/19 08/16/22 History tablet,extended release 24 hr omega-3 fatty acids-fish oil 360 2 cap PO QAM 04/26/19 08/16/22 History mg-1,200 mg capsule (Fish Oil) vit C 226 mg-vit E 90 mg-copper 1 cap PO BID 04/26/19 08/16/22 History 0.8 mg-zinc oxide-lutein 5 mg capsule (PreserVision Lutein) cholecalciferol (vitamin D3) 25 25 mcg PO DAILY 08/16/22 08/16/22 History mcg (1,000 unit) capsule (Vitamin D3) hydrochlorothiazide 12.5 mg tablet 12.5 mg PO QAM 08/16/22 08/16/22 History levothyroxine 137 mcg tablet 137 mcg PO DAILYBB 08/16/22 08/16/22 History modafinil 200 mg tablet 100 mg PO QAM 08/16/22 08/16/22 History multivitamin 1 tab PO QAM 08/16/22 08/16/22 History Patient History Medical History 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, s/p lumpectomy CKD (chronic kidney disease), stage IV Diverticular disease Factor V Leiden Hiatal hernia History of DVT (deep vein thrombosis) 2006-completed 3 months of Coumadin therapy Hypertension Hypothyroidism Macular degeneration BILATERAL Narcolepsy Osteoarthritis Surgical History History of cholecystectomy History of colonoscopy Family History Sister Diabetes Brother Deep vein thrombosis Social History Smoking Status: Never smoker Tobacco Type: Cigarettes Second Hand Exposure: No; Hx Alcohol Use: No Hx Substance Use: No Preferred Language: South African Communication Ability: Effective Switch Inspector Required: No Beliefs That Will Affect Care: None Current Living Situation: Alone Feels Safe at Home: Yes Safety Concerns: Feels Safe At This Time Assistive Devices: Denture - Upper, Denture - Lower, Glasses and Walker Review of Systems Constitutional: no fever and no chills Eyes: no blind spots and no diplopia Ear, Nose, Mouth, Throat: no ear pain and no hearing loss Respiratory: no cough and no dyspnea Cardiovascular: no chest pain and no palpitations Gastrointestinal: no nausea and no vomiting Genitourinary: no dysuria Musculoskeletal: no neck pain and no myalgia Integumentary: no rash and no lesions Neurologic: as per Subjective / HPI Psychiatric: no depression and no anxiety Hematologic / Lymphatic: no easy bleeding and no easy bruising Exam (Neuro) Constitutional: well developed and well nourished; no acute distress Eyes: normal visual stone by confrontation, PERRL, normal accommodation and EOM intact bilaterally; no fundoscopic abnormality, no nystagmus and no papilledema Cardiovascular: Vessels: normal carotid upstroke; no carotid bruit Neurologic: Oriented to:: Person, Place and Time Memory: Short Term Intact and Remote Intact Attention: Span Intact and Concentration Intact Language: Naming Objects and Repeating Phrases Speech Fluency: Dysarthria Speech Aphasia: negative Aphasia Fund of Knowledge: Current Events, Past History and Vocabulary Cranial Nerves: Normal II (Visual stone full to confrontation, visual acuity normal), III, IV, (Pupils equal round reactive to light and accommodation, eye movements normal), V (Facial sensation intact), VIII (Hearing intact), IX, X (Palate elevates to midline), XI (Shoulder shrug intact) and XII (Tongue protrudes to midline); Abnorm VII (There is a mild right lower facial droop.) Motor Strength: Normal Lower Extremities and Pronator Drift Laterality: Right; negative Normal Upper Extremities (Mild right upper extremity weakness, decreased facility of movement, orbits on the right with arm roll) Motor Tone: Normal Lower Extremities and Normal Upper Extremities Muscle Bulk/Involuntary Movements: No Involuntary Movements; negative Muscle Atrophy Sensation: Light Touch Intact, Pain/Temperature Intact, Vibration Intact and Proprioception Intact Coordination: Normal and Finger-Nose Abnormal Laterality: Right; negative Dysdiadochokinesia or Heel-Ghosh Abnormal Deep Tendon Reflexes: Rt Triceps: 2+, Lt Triceps: 2+, Rt Biceps: 2+, Lt Biceps: 2+, Rt Brachioradialis: 2+, Lt Brachioradialis: 2+, Rt Patellar: 2+, Lt Patellar: 2+, Rt Ankle: 1+ and Lt Ankle: 1+ Special Tests: negative Babinski Present Details: Gait cannot be tested in the context of patient's current medical/neurological status. Results & Data ([facility]) Vital Signs (Past 12 Hours) Vital Signs Temp Pulse Pulse Resp BP BP Pulse Ox 08/17/22 06:42 64 179/98 H 08/17/22 02:22 36.6 C 16 147/72 H 97 08/16/22 23:51 63 08/16/22 22:46 36.3 C L 65 16 189/90 H 97 O2 Del Method 08/17/22 06:42 08/17/22 02:22 Room Air 08/16/22 23:51 08/16/22 22:46 Room Air Laboratory Results WBC 3.56, hemoglobin 11.5, hematocrit 35.3, MCV 93.1, platelet count 134, sodium 142, potassium 4.1, BUN 34, creatinine 1.42, glucose 100, calcium 9.0, AST 16, ALT 11, triglycerides 159, cholesterol 127, LDL 61, VLDL 32, HDL 34, TSH less than 0.010, free T4 1.66, SARS-CoV-2 negative. Diagnostic Findings I independently reviewed the CT of the head. Imaging as described in the history of present illness. Electrocardiogram reveals a normal sinus rhythm, possible left atrial enlargement, 69 bpm. Coding Level of Care Code 81180 Initial In Care Lvl 3 Diagnoses Stroke-like symptoms R29.90
[2022-08-17] MEDS ORDERED: hydroCHLOROthiazide 25 MG TAB PO SCH (09:00)
[2022-08-17] MEDS ORDERED: CLOPIDOGREL BISULFATE 75 MG TAB PO SCH (09:00)
[2022-08-17] MEDS ORDERED: hydrALAZINE HCL 20 MG/ML VIAL IV STA (09:09)
[2022-08-17] MEDS ORDERED: hydrALAZINE HCL 20 MG/ML VIAL ONE (09:22)
[2022-08-17] MEDS: lisinopril 40 MG TAB PO SCH (10:30)
[2022-08-17] MEDS: modafiniL 100 MG TAB PO SCH (10:32)
--- NOTE | 2022-08-17 11:49 | Hospitalist Progress Note ---
Date of Service August 17, 2022 Assessment & Plan (1) Facial droop: (2) Slurred speech: Plan: Likely secondary to acute lacunar stroke Brain MRI: Pending Echocardiogram: Pending Evaluated by neurology service, recommending aspirin 81 mg p.o. daily Maintain blood pressure systolic 140s over 80s Continue Lipitor 40 mg p.o. daily PT and OT evaluation (3) Acute UTI: Plan: UA suggestive of UTI Likely asymptomatic bacteriuria Received IV ceftriaxone in the ED, continue with, follow urine culture Urine culture: Gram-negative bacilli Ceftriaxone IV day #2 (4) Hypothyroidism: Plan: TSH <0.010, free T4 1.66 Outpatient labs on 07/24 -TSH 0.01, free T4 3.1 --levothyroxine was reduced at that time Will reduce levothyroxine to 112 mcg daily Outpatient follow-up labs in 6 weeks (5) Hypertension: Plan: Hold amlodipine amlodipine, hydrochlorothiazide to prevent hypotension Continue usual metoprolol and lisinopril (6) CKD (chronic kidney disease), stage IV: Plan: Baseline creatinine mid 1s Creat 1.6 today Monitor renal functions Today 1.4 (7) Narcolepsy: Plan: Continue modafinil (8) DVT prophylaxis: Plan: SQ heparin Plan Disposition Patient lives alone at home Will need PT and OT evaluation Admission and Anticipated Discharge Date Admission Date: August 16, 2022 Subjective Follow-up for facial droop, dysarthria, etc. Seen sitting up in bed, comfortable, not distressed Awake and alert, in good spirits States she feels improved overall Still having some right-sided facial droop, mild slurred speech but no aphasia Bedside swallow test performed, patient did not show signs of dysphagia as per speech therapist no chest pain, dyspnea, palpitations, dizziness No fevers or chills abdominal pain, nausea No other symptoms Review of Systems Review of Systems: all noted and negative except for above Physical Exam Physical Exam: General- oriented x 3, not in distress, speaks in sentences with no effort or accessory muscle use Eyes- anicteric Neck- no JVD Lungs- clear breath sounds bilaterally, no rales/wheezes Heart- normal rate, regular rhythm; no murmurs Abdomen- normal bowel sounds, nondistended, soft, nontender Extremities- no pretibial edema, no calf tenderness Neuro- alert, oriented x 3; cranial nerves II through XII was intact except for right-sided facial droop, mild dysarthria No other signs of focal neurologic deficits Skin- warm & dry Results & Data Results & Data ([facility]) Vital Signs (Past 12 Hours) Vital Signs Temp Pulse Pulse Resp BP BP Pulse Ox 08/17/22 09:29 168/79 H 08/17/22 08:41 60 18 208/73 H 96 08/17/22 06:42 64 179/98 H 08/17/22 02:22 36.6 C 16 147/72 H 97 O2 Del Method 08/17/22 09:29 08/17/22 08:41 Nasal Cannula 08/17/22 06:42 08/17/22 02:22 Room Air all noted and reviewed including below
--- NOTE | 2022-08-17 13:41 | Ultrasound Report ---
CAROTID ARTERY ULTRASOUND CLINICAL HISTORY: stroke COMPARISON STUDY: None. TECHNIQUE: Real-time, grayscale, and color Doppler sonography of the carotid and vertebral arteries w as performed. Images were viewed in the transverse and longitudinal planes. FINDINGS: There is extensive atherosclerotic plaque within left carotid bifurcation. Velocity measurements are listed below. COMMON CAROTID PEAK SYSTOLIC VELOCITY (CM/S): RIGHT 107 LEFT 109 ICA PEAK SYSTOLIC VELOCITY (CM/S): RIGHT 112 LEFT 186 Systolic ratios between the internal to common carotid arteries were normal. Antegrade flow is seen in the vertebral arteries. The external carotid arteries are patent. Peak syst olic velocity was elevated within the left external carotid artery, measuring 301 cm/s. IMPRESSION: 1. 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 2. Elevated velocity consistent with stenosis within the proximal left external carotid artery. ACT 112: Negative or not required by law. Electronically signed by: Nathaniel Rodriguez M.D. 08/17/2022 1:39 PM
--- NOTE | 2022-08-17 13:47 | Electrocardiogram Report ---
Test Reason : Blood Pressure : / mmHG Vent. Rate : 069 BPM Atrial Rate : 069 BPM P-R Int : 184 ms QRS Dur : 086 ms QT Int : 426 ms P-R-T Axes : 042 -16 026 degrees QTc Int : 456 ms Poor data quality, interpretation may be adversely affected Normal sinus rhythm Poor R wave progression, consider anterior [place] vs. lead placement vs. LVH When compared with ECG of 29-MAR-2022 19:57, No significant change was found Confirmed by Vance Chang ([id number]) on 08/17/2022 1:46:59 PM Referred By: REFERRED SELF Confirmed By:Vance Chang
[2022-08-17] MEDS ORDERED: GADOBUTROL 65ML VIAL IV ONE (14:08)
--- NOTE | 2022-08-17 14:25 | Magnetic Resonance Report ---
MRI OF THE BRAIN WITHOUT AND WITH IV CONTRAST CLINICAL HISTORY: Stroke symptoms. Slurred speech. COMPARISON STUDY: Head CT August 16, 2022. TECHNIQUE: Utilizing a 1.5 Nafisa magnet and dedicated coil, multiplanar, multiecho imaging of the br ain was performed pre and postcontrast administration. IV administration of 7.4 mL of Gadavist contr ast was uneventful. FINDINGS: There is a small 6 mm focus of restricted diffusion within the right internal capsule/poste rior right basal ganglia on axial image 13 of 22. There is no mass effect. No evidence for hemorrhagi c conversion. Moderate atrophy is noted. This accounts for ventricular dilatation. A few additional o ld small periventricular infarcts are noted. There is an old infarct within left occipital lobe. Basa l cisterns are patent. There are no extra-axial collections. Flow-voids for the major intracranial ve ssels are present. There is no intracranial mass or pathologic enhancement. No suspicious calvarial m arrow replacement is present. IMPRESSION: 1. Small 6 mm acute infarct within the right internal capsule/posterior right basal ganglia. No mass effect. No evidence for hemorrhage. 2. Moderate atrophy. Several additional old infarcts, as above. ACT 112: Negative or not required by law. Electronically signed by: Nathaniel Rodriguez M.D. 08/17/2022 2:23 PM
[2022-08-17] MEDS: amLODIPine BESYLATE 5 MG TAB PO SCH (15:54)
[2022-08-17] MEDS: OMEGA-3 (PURIFIED FISH OIL) 1 GM CAP PO SCH (17:04)
[2022-08-17] MEDS: hydrALAZINE HCL 20 MG/ML VIAL IV PRN (17:11)
[2022-08-17] MEDS: ATORVASTATIN 40 MG TAB PO SCH (20:54)
[2022-08-17] MEDS: CEROVITE ADV FORMULA TAB PO SCH (20:54)
[2022-08-17] MEDS: METOPROLOL SUCC 25MG EXT REL TAB PO SCH (20:54)
[2022-08-18] MEDS: LEVOTHYROXINE SODIUM 125 MCG TABLET PO SCH (05:04)
[2022-08-18 07:13] LABS: Estimated Average Glucose 111 mg/dl; Hemoglobin A1C 5.5 % (4.5-5.6)
[2022-08-18 07:20] LABS: Basophils # (auto) 0.04 K/uL (0-0.2); Basophils % (auto) 0.8 %; Eosinophils # (auto) 0.17 K/uL (0-0.50); Eosinophils % (auto) 3.4 %; Hematocrit (blood only) 41.1 % (34.1-44.9); Hemoglobin 13.4 g/dl (12.0-16.0); Immature Granulocytes # (auto) 0.01 K/uL (0.00-0.02); Immature Granulocytes % (auto) 0.2 %; Lymphocytes # (auto) 1.89 K/uL (1.2-3.4); Lymphocytes % (auto) 37.5 %; Mean Corpuscular Hemoglobin 30.5 pg (25.0-34.0); Mean Corpuscular Hgb Conc 32.6 g/dL (32.0-36.0); Mean Corpuscular Volume 93.4 fL (80.0-100.0); Monocytes % (auto) 9.9 %; Neutrophils # (auto) 2.43 K/uL (1.4-6.5); Neutrophils % (auto) 48.2 %; Platelet Count 160 K/uL (130-400); RDW Coefficient of Variation 12.2 % (11.5-14.5); RDW Standard Deviation 41.7 fL (36.4-46.3); White Blood Count 5.04 K/ul (4.8-10.8)
[2022-08-18 07:56] LABS: BUN Creatinine Ratio 23.1 (10-20); Calcium 9.4 mg/dl (8.5-10.1); Creatinine Clr Calc Pharmacy 25.2 ml/min; Est GFR (African American) 32.8 ml/min; Est GFR (Non-African American) 28.3 ml/min; Potassium 4.1 mmol/L (3.5-5.1)
[2022-08-18] MEDS: CHOLECALCIFEROL 1,000 UNITS 25 MCG TAB PO SCH (08:13)
[2022-08-18] MEDS: OMEGA-3 (PURIFIED FISH OIL) 1 GM CAP PO SCH (08:13)
[2022-08-18] MEDS: HEPARIN SOD 5,000 UNIT/0.5 ML VIAL SQ SCH ×2 (08:13→20:12)
[2022-08-18] MEDS: lisinopril 40 MG TAB PO SCH (08:14)
[2022-08-18] MEDS: ASPIRIN 81 MG ECTAB PO SCH (08:14)
[2022-08-18] MEDS: CEROVITE ADV FORMULA TAB PO SCH ×2 (08:14→20:13)
[2022-08-18] MEDS: modafiniL 100 MG TAB PO SCH (09:49)
--- NOTE | 2022-08-18 12:13 | Hospitalist Progress Note ---
Date of Service August 18, 2022 Assessment & Plan (1) Facial droop: (2) Slurred speech: Plan: Secondary to acute CVA, right internal capsule/posterior basal ganglia infarct Brain MRI: Infarct on the right internal capsule/posterior basal ganglia Echocardiogram: EF 60 to 65%, no segmental left ventricular wall motion abnormality, grade 2 diastolic dysfunction, no evidence for atrial septal defect Mild aortic regurgitation, no significant aortic valvular stenosis Carotid Doppler: Sonographic findings suggestive of 50 to 69% stenosis of the proximal left ICA Elevated velocity consistent with stenosis within the proximal left external carotid artery Evaluated by neurology service, recommending aspirin 81 mg p.o. daily Maintain blood pressure systolic 140s over 80s Continue Lipitor 40 mg p.o. daily Will need vascular surgery evaluation for left ICA stenosis Will need Zio patch monitoring PT and OT evaluation (3) Acute UTI: Plan: UA suggestive of UTI Likely asymptomatic bacteriuria Received IV ceftriaxone in the ED, continue with, follow urine culture Urine culture: E. coli, pansensitive Amoxicillin 500 mg p.o. twice daily (4) Hypothyroidism: Plan: TSH <0.010, free T4 1.66 Outpatient labs on 07/24 -TSH 0.01, free T4 3.1 --levothyroxine was reduced at that time Will reduce levothyroxine to 112 mcg daily Outpatient follow-up labs in 6 weeks (5) Hypertension: Plan: Hold amlodipine amlodipine, hydrochlorothiazide to prevent hypotension Continue usual metoprolol and lisinopril (6) CKD (chronic kidney disease), stage IV: Plan: Baseline creatinine mid 1s Creat 1.6 today Monitor renal functions Today 1.6 (7) Narcolepsy: Plan: Continue modafinil (8) DVT prophylaxis: Plan: SQ heparin Plan Disposition Patient lives alone at home Will need PT and OT evaluation Admission and Anticipated Discharge Date Admission Date: August 16, 2022 Subjective Follow-up for acute CVA, etc. Seen sitting up in bedside chair, comfortable, not in distress Alert, oriented States she feels fine overall Still has some right-sided facial droop No problems with dysphagia Ambulating with no problems no chest pain, dyspnea, palpitations, dizziness No other symptoms Review of Systems Review of Systems: all noted and negative except for above Physical Exam Physical Exam: General- oriented x 3, not in distress, speaks in sentences with no effort or accessory muscle use Eyes- anicteric Neck- no JVD Lungs- clear breath sounds bilaterally, no crackles Heart- normal rate, regular rhythm; no murmurs Abdomen- normal bowel sounds, nondistended, soft, nontender Extremities- no pretibial edema, no calf tenderness Neuro- alert, oriented x 3; positive mild right-sided facial droop, no dysarthria, no other new gross focal neurologic deficits Skin- warm & dry Results & Data Results & Data ([facility]) Vital Signs (Past 12 Hours) Vital Signs Temp Pulse Pulse Resp BP Pulse Ox O2 Del Method 08/18/22 07:00 37.4 C 66 19 170/58 H 98 Room Air 08/18/22 07:00 70 08/18/22 03:45 36.3 C L 64 18 144/76 H 96 Room Air all noted and reviewed including below
--- NOTE | 2022-08-18 14:51 | Pharmacy Report ---
- Date of Service August 18, 2022 - Pharmacy CVA/TIA Medication Review Medications to Prevent Stroke handout has been added to the patients discharge packet. Antiplatelet(s) * Aspirin 81 mg Cholesterol * High intensity statin: atorvastatin 40 mg daily DVT Prophylaxis * Heparin SQ Therapeutic Anticoagulation * No history of Afib/Aflutter noted Type 2 Diabetes * Patient does not have T2DM
[2022-08-18] MEDS: amLODIPine BESYLATE 5 MG TAB PO SCH (20:10)
[2022-08-18] MEDS: ATORVASTATIN 40 MG TAB PO SCH (20:11)
[2022-08-18] MEDS: METOPROLOL SUCC 25MG EXT REL TAB PO SCH (20:12)
[2022-08-19] MEDS: hydrALAZINE HCL 20 MG/ML VIAL IV PRN (00:38)
[2022-08-19] MEDS: LEVOTHYROXINE SODIUM 125 MCG TABLET PO SCH (05:38)
[2022-08-19 06:44] LABS: Basophils # (auto) 0.02 K/uL (0-0.2); Basophils % (auto) 0.5 %; Eosinophils # (auto) 0.15 K/uL (0-0.50); Eosinophils % (auto) 3.7 %; Hematocrit (blood only) 35.8 % (34.1-44.9); Immature Granulocytes # (auto) 0.01 K/uL (0.00-0.02); Immature Granulocytes % (auto) 0.2 %; Lymphocytes # (auto) 1.69 K/uL (1.2-3.4); Lymphocytes % (auto) 41.4 %; Mean Corpuscular Hemoglobin 30.8 pg (25.0-34.0); Mean Corpuscular Hgb Conc 33.5 g/dL (32.0-36.0); Mean Corpuscular Volume 91.8 fL (80.0-100.0); Mean Platelet Volume 10.7 fL (9.4-12.3); Monocytes # (auto) 0.43 K/uL (0.24-0.82); Monocytes % (auto) 10.5 %; Neutrophils # (auto) 1.78 K/uL (1.4-6.5); Neutrophils % (auto) 43.7 %; Platelet Count 137 K/uL (130-400); RDW Coefficient of Variation 12.1 % (11.5-14.5); RDW Standard Deviation 40.6 fL (36.4-46.3); White Blood Count 4.08 K/ul (4.8-10.8)
[2022-08-19 07:10] LABS: Creatinine Clr Calc Pharmacy 25.2 ml/min; Est GFR (African American) 32.8 ml/min; Est GFR (Non-African American) 28.3 ml/min; Potassium 4.2 mmol/L (3.5-5.1)
[2022-08-19] MEDS: HEPARIN SOD 5,000 UNIT/0.5 ML VIAL SQ SCH (08:05)
[2022-08-19] MEDS: OMEGA-3 (PURIFIED FISH OIL) 1 GM CAP PO SCH (08:05)
[2022-08-19] MEDS: lisinopril 40 MG TAB PO SCH (08:05)
[2022-08-19] MEDS: ASPIRIN 81 MG ECTAB PO SCH (08:05)
[2022-08-19] MEDS: CEROVITE ADV FORMULA TAB PO SCH (08:05)
[2022-08-19] MEDS: CHOLECALCIFEROL 1,000 UNITS 25 MCG TAB PO SCH (08:05)
[2022-08-19] MEDS: modafiniL 100 MG TAB PO SCH (08:06)
--- NOTE | 2022-08-19 10:13 | Hospitalist Progress Note ---
Date of Service August 19, 2022 Assessment & Plan (1) Facial droop: (2) Slurred speech: Plan: Secondary to acute CVA, right internal capsule/posterior basal ganglia infarct Brain MRI: Infarct on the right internal capsule/posterior basal ganglia Echocardiogram: EF 60 to 65%, no segmental left ventricular wall motion abnormality, grade 2 diastolic dysfunction, no evidence for atrial septal defect Mild aortic regurgitation, no significant aortic valvular stenosis Carotid Doppler: Sonographic findings suggestive of 50 to 69% stenosis of the proximal left ICA Elevated velocity consistent with stenosis within the proximal left external carotid artery Evaluated by neurology service, recommending aspirin 81 mg p.o. daily Maintain blood pressure systolic 140s over 80s Continue Lipitor 40 mg p.o. daily Will need vascular surgery evaluation for left ICA stenosis Will need Zio patch monitoring PT and OT evaluation (3) Acute UTI: Plan: UA suggestive of UTI Likely asymptomatic bacteriuria Received IV ceftriaxone in the ED, continue with, follow urine culture Urine culture: E. coli, pansensitive Amoxicillin 500 mg p.o. twice daily x 2 more days (4) Hypothyroidism: Plan: TSH <0.010, free T4 1.66 Outpatient labs on 07/24 -TSH 0.01, free T4 3.1 --levothyroxine was reduced at that time Will reduce levothyroxine to 112 mcg daily Outpatient follow-up labs in 6 weeks (5) Hypertension: Plan: Resume usual metoprolol, lisinopril, amlodipine, HCTZ Monitor blood pressure daily (6) CKD (chronic kidney disease), stage IV: Plan: Baseline creatinine mid 1s Creat 1.6 today Monitor renal functions Today 1.6 (7) Narcolepsy: Plan: Continue modafinil (8) DVT prophylaxis: Plan: SQ heparin given Plan [facility]position [facility] Follow-up with PCP in 1 week Follow-up with neurologist in 3 weeks Admission and Anticipated Discharge Date Admission Date: August 16, 2022 Subjective Follow-up for acute CVA, etc. Seen resting in bed, comfortable, not in distress In good spirits, smiling States she feels fine overall Has mild right-sided facial droop, but no other new neurologic symptoms No dysarthria, no dysphagia No problems with chewing food Ambulating in the room with no problems no chest pain, dyspnea, palpitations, dizziness No other symptom Review of Systems Review of Systems: all noted and negative except for above Physical Exam Physical Exam: General- oriented x 2, not in distress, speaks in sentences with no effort or accessory muscle use Eyes- anicteric Neck- no JVD Lungs- clear breath sounds bilaterally, no rales/wheezes Heart- normal rate, regular rhythm; no murmurs Abdomen- normal bowel sounds, nondistended, soft, nontender Extremities- no pretibial edema, no calf tenderness Neuro- alert, oriented x 3; mild right-sided facial droop, otherwise no new gross focal neurologic deficits Skin- warm & dry Results & Data Results & Data ([facility]) Vital Signs (Past 12 Hours) Vital Signs Temp Pulse Pulse Resp BP Pulse Ox O2 Del Method 08/19/22 07:00 36.7 C 88 18 154/64 H 94 Room Air 08/19/22 07:00 68 08/19/22 03:24 36.3 C L 66 18 156/60 H 96 Room Air 08/19/22 00:30 36.6 C 61 16 176/77 H 96 Room Air 08/18/22 23:51 63 all noted and reviewed including below
[2022-08-19] MEDS ORDERED: STROKE PATIENT DISCHARGE STA (10:19)
[2022-08-19] MEDS ORDERED: AMOXICILLIN 500 MG CAP PO SCH (10:30)
--- NOTE | 2022-08-19 10:41 | Discharge Summary ---
Discharge Summary Date of Service August 19, 2022 Notes For Next Care Provider Please refer to vascular surgeon for left ICA stenosis 50 to 69%. Patient will also need Zio patch monitor placement. Levothyroxine reduced to 125 mg daily. Repeat thyroid function test in 3 weeks. Medication Changes From Visit New: Aspirin 81 mg p.o. daily Amoxicillin 5 mg p.o. twice daily x2 days Changes: Levothyroxine reduced to 125 mcg p.o. daily Admission HPI Per Admitting Provider 89-year-old female PMH hypothyroidism, HLD, history of DVT in 2006 treated with 3 months of Coumadin therapy, macular degeneration, CKD stage IV, factor V Leiden, narcolepsy with cataplexy, history of breast cancer s/p lumpectomy, and other problems listed below who presents the ED for evaluation of facial droop and slurred speech. Patient's daughter is the bedside who provides some history. States that yesterday afternoon she noted the patient to have some difficulty speaking and that the left side of her mouth was drooping. She states that her speech was somewhat slow and mildly slurred. This morning, when the patient's daughter spoke to her on the phone, the speech seems somewhat worse. Patient attended a with her family today. After the , patient presented to the ED for further evaluation due to persistent symptoms. No unilateral weakness, numbness, tingling reported. Patient reports he otherwise has been feeling well recently. Denies any other recent illnesses, fevers, chills. No abdominal pain, nausea, vomiting, diarrhea. Denies urinary symptoms. In the ED, head CT is negative for acute findings. UA is suggestive of UTI. Patient received IV ceftriaxone. Admission Exam Per Admitting Provider Constitutional: WD/WN, vitals as above Eyes: PERRL, conjunctivae normal, anicteric sclerae ENMT: external ear and nose normal, oropharynx normal Respiratory: normal respiratory effort, lungs clear to auscultation Cardiovascular: Rate/Rhythm: regular rate and regular rhythm Vessels: normal peripheral pulses Extremities: no edema Gastrointestinal (Abdomen): normal bowel sounds, soft, nontender, no hepatosplenomegaly Musculoskeletal: no cyanosis or clubbing, extremities motor strength 5/5 Skin: no rashes, warm and dry Neurologic: moves all extremities; no focal motor deficits Speech / Cognition: + abnormal speech (speech somewhat slow and mildly thick/slurred) Cranial Nerves: PERRL, normal accommodation and EOM intact bilaterally; + abnormal facial strength (left side of mouth drooping) Coordination: normal [id number] test and normal [id number] test Psychiatric: A+Ox3, euthymic affect Principal Dx & Hospital Course #1 = Principal Diagnosis (1) Facial droop: (2) Slurred speech: Secondary to acute CVA, right internal capsule/posterior basal ganglia infarct Brain MRI: Infarct on the right internal capsule/posterior basal ganglia Echocardiogram: EF 60 to 65%, no segmental left ventricular wall motion abnormality, grade 2 diastolic dysfunction, no evidence for atrial septal defect Mild aortic regurgitation, no significant aortic valvular stenosis Carotid Doppler: Sonographic findings suggestive of 50 to 69% stenosis of the proximal left ICA Elevated velocity consistent with stenosis within the proximal left external carotid artery Evaluated by neurology service, recommending to start aspirin 81 mg p.o. daily Maintain blood pressure systolic 140s over 80s Continue Lipitor 40 mg p.o. daily Will need vascular surgery evaluation for left ICA stenosis Will need Zio patch monitoring PT and OT evaluation (3) Acute UTI: UA suggestive of UTI Likely asymptomatic bacteriuria Received IV ceftriaxone in the ED, continue with, follow urine culture Urine culture: E. coli, pansensitive Amoxicillin 500 mg p.o. twice daily x 2 more days (4) Hypothyroidism: TSH <0.010, free T4 1.66 Outpatient labs on 07/24 -TSH 0.01, free T4 3.1 --levothyroxine was reduced at that time Will reduce levothyroxine to 125 mcg daily Outpatient follow-up labs in 6 weeks (5) Hypertension: Resume usual metoprolol, lisinopril, amlodipine, HCTZ Monitor blood pressure daily (6) CKD (chronic kidney disease), stage IV: Baseline creatinine mid 1s Today 1.6 Monitor as an outpatient (7) Narcolepsy: Continue modafinil (8) DVT prophylaxis: SQ heparin given Plan [facility]position [facility] Follow-up with PCP in 1 week Follow-up with neurologist in 3 weeks Discharge Exam General- oriented x 2, not in distress, speaks in sentences with no effort or accessory muscle use Eyes- anicteric Neck- no JVD Lungs- clear breath sounds bilaterally, no rales/wheezes Heart- normal rate, regular rhythm; no murmurs Abdomen- normal bowel sounds, nondistended, soft, nontender Extremities- no pretibial edema, no calf tenderness Neuro- alert, oriented x 3; mild right-sided facial droop, otherwise no new gross focal neurologic deficits Skin- warm & dry Updated Medication List Medication Instructions Recorded Confirmed Type amlodipine 10 mg tablet 10 mg PO HS 04/26/19 08/16/22 History atorvastatin 40 mg tablet 40 mg PO HS 04/26/19 08/16/22 History lisinopril 20 mg tablet 40 mg PO QAM 04/26/19 08/16/22 History metoprolol succinate 25 mg 25 mg PO HS 04/26/19 08/16/22 History tablet,extended release 24 hr omega-3 fatty acids-fish oil 360 2 cap PO QAM 04/26/19 08/16/22 History mg-1,200 mg capsule (Fish Oil) vit C 226 mg-vit E 90 mg-copper 1 cap PO BID 04/26/19 08/16/22 History 0.8 mg-zinc oxide-lutein 5 mg capsule (PreserVision Lutein) cholecalciferol (vitamin D3) 25 25 mcg PO DAILY 08/16/22 08/16/22 History mcg (1,000 unit) capsule (Vitamin D3) hydrochlorothiazide 12.5 mg tablet 12.5 mg PO QAM 08/16/22 08/16/22 History modafinil 200 mg tablet 100 mg PO QAM 08/16/22 08/16/22 History multivitamin 1 tab PO QAM 08/16/22 08/16/22 History amoxicillin 500 mg capsule 500 mg PO BID 2 days #4 caps 08/19/22 Rx aspirin 81 mg tablet,delayed 81 mg PO DAILY 30 days #30 tabs 08/19/22 Rx release levothyroxine 125 mcg tablet 125 mcg PO DAILYBB #30 tabs 08/19/22 Rx (Synthroid) Hospital Stay Data Consultations 08/16/22 17:59 ED Decision to Admit Stat 08/16/22 20:27 Consult Neurology Routine Diagnostic Imagining Performed Chest X-Ray 08/16/22 14:49 XR chest 1V portable CLINICAL HISTORY: Stroke Like Symptoms TECHNIQUE: Single frontal radiograph of the chest was obtained. Comparison: Comparison is made to chest radiograph 11/01/2020 FINDINGS: No lines and tubes are seen. Cardiomegaly is noted. Reticular interstitial opacities are seen. Incidental note is made of calcified granuloma in the left lung base. No evidence of pleural effusion or pneumothorax. IMPRESSION: No acute chest disease. Cardiomegaly is noted. ACT 112: Negative or not required by law. Electronically signed by: Florentin Silva M.D. 08/16/2022 3:[address] 08/16/22 14:49 CT head/brain wo con CLINICAL HISTORY: Stroke Like Symptoms, slurred speech Technique: Contiguous axial CT images of the head were acquired from the base of the skull to the vertex without intravenous contrast administration. Images were viewed in brain, subdural and bone windows. Automated dose lowering techniques and/or adjustment according to patient size were utilized for this exam. Comparison: Comparison is made to CT head 11/01/2020 Findings: Areas of decreased attenuation are present in the periventricular and subcortical white matter bilaterally consistent with small vessel ischemic disease. Generalized cerebral atrophy with commensurate enlargement of the ventricles, sulci, and cisterns is also present. There is no acute intracranial hemorrhage or evidence of acute territorial infarction. No shift of the midline structures, mass effect, or extra-axial abnormalities are shown. Atherosclerotic calcifications are present in the intracranial segments of the internal carotid arteries. Encephalomalacia is in the left occipital lobe and left periventricular white matter. Imaged portions of the paranasal sinuses and mastoid air cells are clear. The orbits appear normal. There are no acute fractures of the calvaria or scalp swelling. Impression: No acute intracranial hemorrhage, no evidence of acute territorial infarction or other acute intracranial disease process. ACT 112: Negative or not required by law. Electronically signed by: Florentin Silva M.D. 08/16/2022 5:18 PM Brain MRI 08/17/22 08:57 MRI OF THE BRAIN WITHOUT AND WITH IV CONTRAST CLINICAL HISTORY: Stroke symptoms. Slurred speech. COMPARISON STUDY: Head CT August 16, 2022. TECHNIQUE: Utilizing a 1.5 Nafisa magnet and dedicated coil, multiplanar, multiecho imaging of the brain was performed pre and postcontrast administration. IV administration of 7.4 mL of Gadavist contrast was uneventful. FINDINGS: There is a small 6 mm focus of restricted diffusion within the right internal capsule/posterior right basal ganglia on axial image . There is no mass effect. No evidence for hemorrhagic conversion. Moderate atrophy is noted. This accounts for ventricular dilatation. A few additional old small periventricular infarcts are noted. There is an old infarct within left occipital lobe. Basal cisterns are patent. There are no extra-axial collections. Flow-voids for the major intracranial vessels are present. There is no intracranial mass or pathologic enhancement. No suspicious calvarial marrow replacement is present. IMPRESSION: 1. Small 6 mm acute infarct within the right internal capsule/posterior right basal ganglia. No mass effect. No evidence for hemorrhage. 2. Moderate atrophy. Several additional old infarcts, as above. ACT 112: Negative or not required by law. Electronically signed by: Nathaniel Rodriguez M.D. 08/17/2022 2:23 PM Carotid Doppler Study 08/17/22 09:30 CAROTID ARTERY ULTRASOUND CLINICAL HISTORY: stroke COMPARISON STUDY: None. TECHNIQUE: Real-time, grayscale, and color Doppler sonography of the carotid and vertebral arteries was performed. Images were viewed in the transverse and longitudinal planes. FINDINGS: There is extensive atherosclerotic plaque within left carotid bifurcation. Velocity measurements are listed below. COMMON CAROTID PEAK SYSTOLIC VELOCITY (CM/S): RIGHT 107 LEFT 109 ICA PEAK SYSTOLIC VELOCITY (CM/S): RIGHT 112 LEFT 186 Systolic ratios between the internal to common carotid arteries were normal. Antegrade flow is seen in the vertebral arteries. The external carotid arteries are patent. Peak systolic velocity was elevated within the left external carotid artery, measuring 301 cm/s. IMPRESSION: 1. 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 2. Elevated velocity consistent with stenosis within the proximal left external carotid artery. ACT 112: Negative or not required by law. Electronically signed by: Nathaniel Rodriguez M.D. 08/17/2022 1:39 PM Pending Results Patient Have Any Pending Studies at Discharge: Yes Discharge Instructions Given to Patient (Per Discharging Provider) PLEASE REFER TO YOUR NEW MEDICATION LIST AND FOLLOW INSTRUCTIONS CAREFULLY. YOUR NEW MEDICATIONS INCLUDE: Aspirin 81 mg p.o. daily Reduce levothyroxine to 125 mcg daily Amoxicillin 500 mg twice daily x2 days for UTI FOLLOW UP WITH PRIMARY CARE PHYSICIAN OUTLINED ABOVE. FOLLOW-UP WITH [facility] OUTLINED ABOVE. Total Time Total Time Spent Total Time Spent (In Minutes): >30 minutes
== END 2022-08-19 11:05 | DRG 65 ==
LOC: ED 14:30 → SUATTDRO 18:43 → 2E 18:43